=== PATIENT | male | born 1970 | race Caucasian/White ===

== ENCOUNTER 2017-11-24 11:09 | Inpatient (IN) | payer OTHER ==
[~2017-11-24 11:09] MED LIST: Glycopyrrolate 0.2 MG/ML 5 ML SYRINGE ONE; Lidocaine 1% PF 5 ML VIAL ONE; PROPOFOL 200 MG/20 ML VIAL ONE
[2017-11-24] MEDS ORDERED: Piperacillin/Tazobactam 4.5 GM VIAL ONE (12:05)
[2017-11-24 12:09] LABS: ALT (SGPT) 15 U/L (8-55); AST (SGOT) 19 U/L (5-34); Albumin 3.3 g/dL (3.5-5.0); Alkaline Phosphatase 115 U/L (40-150); Anion Gap 15 mmol/L (10-20); BUN (Urea Nitrogen) 21 mg/dL (8.9-20.6); Bilirubin, Total 0.6 mg/dL (0.2-1.2); Calc. Creatinine Clearance 0 mL/min (70-130); Calcium 9.5 mg/dL (7.8-10.44); Carbon Dioxide 25 mmol/L (22-29); Chloride 95 mmol/L (98-107); Estimated GFR-MDRD 57; Globulin 3.5 g/dL (2.4-3.5); Glucose 420 mg/dL (70-105); Magnesium 1.7 mg/dL (1.6-2.6); Protein, Total 6.8 g/dL (6.0-8.3); Sodium 131 mmol/L (136-145)
[2017-11-24 12:17] LABS: Band 29 % (5-11); Hemoglobin 13.2 g/dL (14.0-18.0); Large Platelets MODERATE; Lymphocytes 7 % (21-51); MDiff Complete? YES; Mean Corpuscular HGB CONC 32.1 g/dL (32.0-36.0); Mean Corpuscular Hemoglobin 26.2 pg (27.0-31.0); Mean Corpuscular Volume 81.5 fL (78.0-98.0); Mean Platelet Volume 13.8 fL (7.4-10.4); Monocytes 6 % (0-10); Neutrophil 58 % (42-75); PLT Morphology Comment Appears Adequate; Platelet Count 218 thou/uL (130-400); RBC Distribution Width 12.3 % (11.5-14.5); RBC Morphology Normal; Red Blood Cell (RBC) Count 5.06 mill/uL (4.70-6.10); White Blood Cell (WBC) Count 23.3 thou/uL (4.8-10.8)
--- NOTE | 2017-11-24 12:19 | RAD ---
PORTABLE CHEST 1 VIEW: Date: 11/24/17 Time: 1202 hours HISTORY: Cough. FINDINGS/IMPRESSION: The heart size is normal. There is elevation of the left hemidiaphragm with adjacent focal density li segundo due to subsegmental atelectasis. Right lung is clear. No pneumothoraces or gretel pulmonary edema seen. POS: [facility]
--- NOTE | 2017-11-24 12:21 | RAD ---
RADIOGRAPH RIGHT FOOT 3 VIEWS: Date: 11/24/17 Time: 1206 hours HISTORY: 47-year-old male with right foot infection: swelling, erythema, and pain, with ulcers of the foot. COMPARISON: 05/11/17. FINDINGS: No evidence of periosteitis or permeative lesion. There is soft tissue swelling lateral to the fifth MTP joint, greater than on the prior study. There is a tiny focal lucency within this which could be gas or ulceration. No fracture or dislocation. No high grade DJD. IMPRESSION: 1. Cellulitis of the foot around the lateral aspect of the fifth metatarsophalangeal joint. 2. No plain radiographic evidence of osteomyelitis. POS: [facility]
[2017-11-24 12:24] LABS: Bilirubin Small (Negative); Blood, Urine Trace (Negative); Clarity Clear (Clear); Glucose, Urine (Dipstick) >=1000 mg/dL (Negative); Leukocyte Negative (Negative); Nitrite Negative (Negative); Protein, Urine (Dipstick) 100 mg/dL (Neg-Trace)
[2017-11-24 12:27] LABS: RBC/HPF 0-3 HPF (0-3); Squamous Epithelial 0-3 HPF (0-3); Transitional Epithelial 0-3 HPF (0-3)
[2017-11-24 12:28] LABS: Bacteria/HPF 1+ HPF (None Seen)
[2017-11-24] MEDS ORDERED: Vancomycin HCl 500 MG VIAL ONE (12:58)
[2017-11-24] MEDS ORDERED: Sodium Chloride 0.9% 100 ML ONE (12:58)
[2017-11-24 16:35] LABS: Lactic Acid 1.4 mmol/L (0.5-2.2)
[2017-11-24 16:47] VITALS: BMI 33.3
[2017-11-24] MEDS ORDERED: Dextrose 50% Abboject 50 ML SYRINGE SLOW IVP PRN (17:44)
[2017-11-24] MEDS ORDERED: Acetaminophen 325 MG TAB PO PRN (17:44)
[2017-11-24] MEDS ORDERED: Guaifenesin DM 100-10/5 ML UDCUP PO PRN (17:44)
[2017-11-24] MEDS ORDERED: Senokot S 8.6-50 MG TAB PO PRN (17:44)
[2017-11-24] MEDS ORDERED: Dextrose 5% in Water 1,000 ML IV PRN (17:44)
[2017-11-24] MEDS ORDERED: Sodium Chloride 0.9% 1,000 ML IV SCH (17:45)
[2017-11-24] MEDS ORDERED: VANCOMYCIN/ RENALLY ADJUST ANTIBIOTICS IVPB PRN (17:51)
[2017-11-24] MEDS ORDERED: traMADol HCl 50 MG TAB PO PRN (17:51)
[2017-11-24] MEDS ORDERED: Acetaminophen 500 MG TAB PO PRN (17:51)
[2017-11-24] MEDS: Sodium Chloride 0.9% 1,000 ML IV SCH (18:24)
--- NOTE | 2017-11-24 18:59 | HP ---
DATE OF ADMISSION: 11/24/2017 HISTORY OF PRESENT ILLNESS: Ferdinand Jovel is a 47-year-old male diabetic, nonsmoker, presents to the emergency room at 10:00 this morning with right foot infection. He has extreme cellulitis. He has a n open wound communicating to the metatarsophalangeal joint. He has cellulitis tracking up to his an kle. The infection involves the tendon. He has a callus over the plantar aspect. The patient has h ad blood cultures, seen by Dr. Barbour, admitted to the medical service. Although he was seen at 10: 00 this morning, I was called at 5:00 p.m. to see him. He fortunately has been n.p.o. X-rays do not reveal any evidence of osteomyelitis. White count is 23,000, hemoglobin 13. Basic metabolic profil e, sodium 131, BUN 21, creatinine 1.33, GFR 57, glucose 420. ALLERGIES: LEVOFLOXACIN. TOBACCO: None. ALCOHOL: None. MEDICATIONS: Testosterone injections weekly, glipizide 5 mg a day, lisinopril 2.5 mg a day, gabapent in 300 mg t.i.d., fenofibrate 160 mg p.o. at bedtime. PAST SURGICAL HISTORY: Traumatic amputation of his finger. PAST MEDICAL HISTORY: Diabetes mellitus, hypertension. REVIEW OF SYSTEMS: Ten point noncontributory. FAMILY HISTORY: Negative. PHYSICAL EXAMINATION: VITAL SIGNS: 5 feet 9 inches, 226 pounds, 33 BMI, 99.2, 111 heart rate, 105/66. HEAD, EARS, EYES, NOSE AND THROAT: Unremarkable. LUNGS: Clear to auscultation. CARDIAC: Regular rate and rhythm without murmur or gallop. ABDOMEN: Soft, nontender. EXTREMITIES: Palpable femoral and popliteal pulses. Extremities are unremarkable. ASSESSMENT: Diabetic infection of right foot with severe infection and deep ulceration of the metata rsophalangeal joint of the fifth toe. PLAN: I cannot palpate pedal pulses, but he has good popliteal pulses. Plan amputation of right fif th toe and metatarsal tonight urgently. Risks and benefits explained indicated.
[2017-11-24] MEDS ORDERED: Ondansetron HCl/PF 4 MG/2 ML Vial IVP PRN ×2 (19:22→20:31)
[2017-11-24] MEDS ORDERED: Fentanyl 100 MCG/2 ML VIAL ONE (19:35)
[2017-11-24] MEDS ORDERED: Piperacillin/Tazobactam 4.5 GM in Sodium Chloride 0.9% 100 ML IVPB SCH (20:00)
[2017-11-24] MEDS ORDERED: SUGAMMADEX SODIUM 200 MG/2 ML VIAL ONE (20:18)
[2017-11-24] MEDS ORDERED: Promethazine HCl 25 MG/ML VIAL SLOW IVP PRN (20:31)
[2017-11-24] MEDS ORDERED: Promethazine HCl 25 MG/ML VIAL IM PRN (20:31)
[2017-11-24] MEDS ORDERED: HYDROmorphone 2 MG/ML VIAL SLOW IVP PRN (20:31)
[2017-11-24] MEDS ORDERED: Non-Formulary Item 1 EACH (Fenofibrate [Fenofibrate] 160 MG) PO SCH (21:00)
[2017-11-24] MEDS: Fenofibrate Nanocrystallized 145 MG TAB PO SCH (21:51)
[2017-11-24] MEDS: Famotidine 20 MG TAB PO SCH (21:51)
[2017-11-24] MEDS: Gabapentin 300 MG CAP PO SCH (21:51)
[2017-11-24] MEDS: Piperacillin/Tazobactam 4.5 GM in Sodium Chloride 0.9% 100 ML IVPB SCH (21:58)
[2017-11-24] MEDS: HumaLOG 300 UNITS/3 ML VIAL SC PRN (22:33)
[2017-11-25] MEDS: Vancomycin HCl 1.5 GM in Sodium Chloride 0.9% 250 ML 300 ML IVPB SCH ×2 (00:49→13:35)
--- NOTE | 2017-11-25 01:40 | HP ---
REASON FOR ADMISSION: Sepsis, right foot diabetic ulcer with cellulitis. HISTORY OF PRESENT ILLNESS: The patient gives history of noticing swollen foot on the right side on Monday. On Monday, he noticed a scrape over the dorsum of the foot and the swelling had infact come down, this was all last week. From then on, patient started to spike fever. His swelling and redness started to get worse and he went to see Dr. Gustavo Singer this morning. He was sent to [facility] [place], [place] Emergency Room. From there, he is being admitted for sepsis with right foot abscess and cellulitis. The patient was found to have had a white count of 23 with 29% bands in the ER. The patient says he can' t afford Tradjenta and took 20 units of Novolin insulin because his fingerstick glucose was 450 this morning. He has complaints of cough which is mostly dry and sob. 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 CURRENT MEDICATIONS: Glipizide 5 mg daily, fenofibrate 160 mg p.o. daily, gabapentin 300 mg p.o. 3 times daily, lisinopril 2.5 mg p.o. daily, testosterone shots once a week. ALLERGIES: Allergic to LEVAQUIN which makes him dizzy. PERSONAL HISTORY: Dips tobacco, smokes smokeless cigarettes, quit smoking tobacco 20 years ago, does not abuse alcohol or drugs. Lives with his . FAMILY HISTORY: Father at the age of 79. Mother at the age of 72. Both were heavy smokers and of COPD related complications. CODE STATUS: FULL. REVIEW OF SYSTEMS: The following complete review of systems was negative, unless otherwise mentioned in the HPI or below: Constitutional: Weight loss or gain, ability to conduct usual activities. Skin: Rash, itching. Eyes: Double vision, pain. ENT/Mouth: Nose bleeding, neck stiffness, pain, tenderness. Cardiovascular: Palpitations, dyspnea on exertion, orthopnea. Respiratory: Shortness of breath, wheezing, cough, hemoptysis, fever or night sweats. Gastrointestinal: Poor appetite, abdominal pain, heartburn, nausea, vomiting, constipation, or diarrhea. Genitourinary: Urgency, frequency, dysuria, nocturia. Musculoskeletal: Pain, swelling. Neurologic/Psychiatric: Anxiety, depression. Allergy/Immunologic: Skin rash, bleeding tendency. PHYSICAL EXAMINATION: GENERAL: The patient is a 47-year-old male who is currently not in any acute distress. VITAL SIGNS: Blood pressure 116/80, pulse 120 per minute, respiratory rate 20 per minute, temperature 98.2 degrees Fahrenheit, saturating 92% on room air. NECK: Supple, no elevated JVD. HEENT: Eyes: Extraocular muscles intact. Pupils reacting to light. Oral cavity: Mucous membranes are moist. No exudates or congestion. CARDIOVASCULAR SYSTEM: S1, S2 heard. Regular rhythm. RESPIRATORY SYSTEM: Air entry 1+ bilateral. Scattered rhonchi plus bilateral. ABDOMEN: Soft, bowel sounds heard. No tenderness, rigidity or guarding. EXTREMITIES: Right foot, there is purulent ulcer over the head of fifth metatarsal on the dorsal aspect. His entire foot plus a little above the ankle area is erythematous and edematous. He is able to move all toes: Peripheral pulses are 2+ bilateral. No other ischemic gangrene. CENTRAL NERVOUS SYSTEM: No gross focal deficits noted. The patient is alert, awake, oriented well. PSYCHIATRIC SYSTEM: The patient's mood is euthymic. No hallucinations or delusions. LABORATORY AND X-RAY FINDINGS: EKG done shows sinus tachycardia at 122 beats per minute. Chest x-ray done shows elevation of left hemidiaphragm, no obvious congestion seen. Right foot three view x-ray done shows cellulitis of fluid around the lateral aspect of the fifth metatarsophalangeal joint. No evidence of osteomyelitis. UA shows more than 1000 mg per deciliter of glucose, there are trace ketones and 1+ bacteria with 4-6 wbc's. BUN 21, creatinine 1.3, serum bicarbonate 25, serum glucose 420. Lactic acid 2.2, albumin is 3.3. Liver enzymes within normal limits. White count of 23 with 58% neutrophils and 29% bands, H&H 13 and 41, and platelet count 218. CLINICAL IMPRESSION AND PLAN: The patient will be admitted to telemetry for sepsis with right foot diabetic ulcer. The patient also likely has mild COPD flare-up versus allergic bronchitis. We will place him on vancomycin and Zosyn. Dr. Carey has evaluated him just now and is planning to take him to OR for possible fifth toe amputation and debridement. He is currently n.p.o. for surgery. We will continue him on glipizide. We will add Lantus 15 units twice daily. We will continue his fenofibrate, gabapentin, small dose of lisinopril as before. He will be on DuoNebs q.4 hourly and add a small dose of steroids for his allergic bronchitis with hacking cough at present. We will continue to closely monitor him on telemetry and likely we will transfer him to medical floor in the morning when he is more stable. RANDALL
--- NOTE | 2017-11-25 05:14 | OP ---
DATE OF PROCEDURE: 11/24/2017 PREOPERATIVE DIAGNOSES: Diabetes mellitus, uncontrolled, sepsis, severe diabetic infection of right foot with abscess tracking up the dorsum of the foot with neuropathic ulcer infected and separate lat eral foot ulcer tracking to the MTP fifth toe. PROCEDURES: Amputation of right fifth toe and metatarsal, wound left open to heal by secondary inten tion. Note, excellent blood supply, cautery required for pulsatile bleeding. Incision and drainage of dorsum of foot abscess, culture and sensitivity to microbiology. SURGEON: Dr. Alec Carey. ANESTHESIA: General. Patient was seen in the emergency room at 10:00 this morning, I received consult at 5:00 p.m. The attila guadarrama had a septic right foot with negative x-rays to osteo, but however, he had a white count of ove r 21,000, hyperglycemia and sepsis. PROCEDURE IN DETAIL: The patient was taken to the operating room where under general anesthesia, rig ht lower extremity was prepped with ChloraPrep, draped in routine fashion. Right fifth toe was grasp ed with a towel clamp and excised, excising the plantar neuropathic ulcer as well as the larger ulcer medially. Incision was carried through skin and subcutaneous tissue and carried down for racquet in cision incorporated. Resection of the neuropathic callus and ulcer and the medial ulcer down to the fifth metatarsal transecting with a bone cutter, resecting proximally with rongeurs. There was a cut aneous abscess tracking up the dorsum of the foot towards the ankle that was opened. This was irriga alena. Hemostasis gained with the cautery. There was excellent bleeding. SurgiSeal placed over the w ound and packed open with a dressing for wound VAC application tomorrow. Patient tolerated the proce dure well and transferred to recovery room in stable condition.
[2017-11-25 05:30] LABS: Hemoglobin A1c 11.2 % (4.0-6.0)
[2017-11-25] MEDS: Piperacillin/Tazobactam 4.5 GM in Sodium Chloride 0.9% 100 ML IVPB SCH (05:39)
[2017-11-25] MEDS: HumaLOG 300 UNITS/3 ML VIAL SC PRN ×4 (05:39→20:48)
[2017-11-25 05:40] LABS: Anion Gap 18 mmol/L (10-20); BUN (Urea Nitrogen) 23 mg/dL (8.9-20.6); Calc. Creatinine Clearance 142 mL/min (70-130); Calcium 8.3 mg/dL (7.8-10.44); Carbon Dioxide 18 mmol/L (22-29); Chloride 101 mmol/L (98-107); Estimated GFR-MDRD 89; Glucose 322 mg/dL (70-105); Potassium 4.5 mmol/L (3.5-5.1); Sodium 132 mmol/L (136-145)
[2017-11-25] MEDS ORDERED: glipiZIDE 5 MG TAB PO SCH (07:30)
[2017-11-25 07:52] LABS: Band 3 % (5-11); Hemoglobin 11.3 g/dL (14.0-18.0); Hypochromia SLIGHT = 6-15 cells (100X) (0-5/hpf); MDiff Complete? YES; Mean Corpuscular HGB CONC 31.5 g/dL (32.0-36.0); Mean Corpuscular Volume 85.8 fL (78.0-98.0); Mean Platelet Volume 10.7 fL (7.4-10.4); Microcytosis SLIGHT = 6-15 cells (100X) (0-5/hpf); Monocytes 14 % (0-10); Neutrophil 80 % (42-75); PLT Morphology Comment Appears Adequate; Platelet Count 225 thou/uL (130-400); RBC Distribution Width 12.6 % (11.5-14.5); Reactive Lymphocytes 3 % (0-10); Red Blood Cell (RBC) Count 4.18 mill/uL (4.70-6.10); White Blood Cell (WBC) Count 19.7 thou/uL (4.8-10.8)
[2017-11-25] MEDS ORDERED: predniSONE 20 MG TAB PO SCH (08:00)
[2017-11-25] MEDS: Famotidine 20 MG TAB PO SCH ×2 (09:01→20:44)
[2017-11-25] MEDS: Enoxaparin Sodium 40 MG/0.4 ML SYRINGE SC SCH (09:01)
[2017-11-25] MEDS: Benzonatate 100 MG CAP PO SCH ×3 (09:01→20:44)
[2017-11-25] MEDS: guaiFENesin ER 600 MG TAB PO SCH ×2 (09:02→20:45)
[2017-11-25] MEDS: glipiZIDE 5 MG TAB PO SCH ×2 (09:02→20:44)
[2017-11-25] MEDS: Gabapentin 300 MG CAP PO SCH ×3 (09:02→20:44)
[2017-11-25] MEDS: Lisinopril 2.5 MG TAB PO SCH (09:02)
[2017-11-25] MEDS: Polyethylene Glycol 3350 17 GM Packet PO SCH (09:03)
[2017-11-25] MEDS: Insulin Glargine 15 UNITS in Pre-Filled Syringe 1 EACH SC SCH ×2 (09:25→20:52)
[2017-11-25] MEDS: traMADol HCl 50 MG TAB PO PRN (10:10)
[2017-11-25] MEDS: Sodium Chloride 0.9% 1,000 ML IV SCH ×2 (10:11→22:53)
--- NOTE | 2017-11-25 12:04 | PDOC.PN ---
- Subjective Encounter Start Date: 11/25/17 Encounter Start Time: 11:00 Subjective: feels better -: ambulating in room, has some pain in his operated foot - Objective Resuscitation Status: Resuscitation Status FULL:Full Resuscitation MAR Reviewed: Yes Vital Signs & Weight: Vital Signs (12 hours) Temp Pulse Resp BP BP Pulse Ox 11/25/17 07:49 98 F 107 H 18 137/79 97 11/25/17 03:42 92 L 11/25/17 03:07 98.8 F 103 H 17 110/63 92 L Weight Weight 226 lb 1.6 oz Result Diagrams: 11/25/17 04:54 11/25/17 04:53 Additional Labs: Accuchecks 11/25/17 11/25/17 11/24/17 10:47 05:35 21:22 POC Glucose 346 H 319 H 253 H 11/24/17 11/24/17 17:01 13:59 POC Glucose 279 H 325 H Phys Exam - Physical Examination HEENT: PERRLA, moist MMs Neck: no JVD, supple Respiratory: no wheezing, no rales Cardiovascular: RRR, no significant murmur Gastrointestinal: soft, non-tender, positive bowel sounds Musculoskeletal: pulses present right foot in dressing Neurological: non-focal, moves all 4 limbs Psychiatric: normal affect, A&O x 3 Dx/Plan (1) Sepsis Code(s): A41.9 - SEPSIS, UNSPECIFIED ORGANISM Status: Acute Qualifiers: Sepsis type: Streptococcus, other Qualified Code(s): A40.8 - Other streptococcal sepsis (2) Bacteremia Code(s): R78.81 - BACTEREMIA Status: Acute Comment: streptococcus agalactiae 2/2 (3) Diabetic foot ulcer Code(s): E11.621 - TYPE 2 DIABETES MELLITUS WITH FOOT ULCER; L97.509 - NON- PRESSURE CHRONIC ULCER OTH PRT UNSP FOOT W UNSP SEVERITY Status: Acute Qualifiers: Diabetic foot ulcer location: midfoot Diabetes mellitus type: type 2 Laterality: right Non-pressure ulcer stage: with bone involvement without evidence of necrosis Qualified Code(s): E11.621 - Type 2 diabetes mellitus with foot ulcer; L97.416 - 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 without evidence of necrosis Comment: s/p amp of 5th toe and metatarsal with debribement of dorsal ulcer (4) DM type 2 (diabetes mellitus, type 2) Status: Chronic Qualifiers: Diabetes mellitus care home insulin use: without exterminator helper use Diabetes mellitus complication status: with hyperglycemia Qualified Code(s): E11.65 - Type 2 diabetes mellitus with hyperglycemia Comment: HbA1C of 11.2 (5) Dyslipidemia Code(s): E78.5 - HYPERLIPIDEMIA, UNSPECIFIED Status: Chronic (6) Acute bronchitis Code(s): J20.9 - ACUTE BRONCHITIS, UNSPECIFIED Status: Acute Qualifiers: Bronchitis organism: unspecified organism Qualified Code(s): J20.9 - Acute bronchitis, unspecified - Plan continue vanc and zosyn -: await full cultures -: echo pending, tx to med floor -: dc steroids, bronchitis is stable now, nebs, mucinex/tessalon -: increase glipizide and add lantus for now * . Review of Systems - Medications/Allergies Allergies/Adverse Reactions: Allergies Allergy/AdvReac Type Severity Reaction Status Date / Time levofloxacin [From Levaquin] Allergy Verified 11/24/17 16:30 Medications: Current Medications Acetaminophen (Tylenol) 650 mg PO Q4H PRN PRN Reason: Headache/Fever/Mild Pain (1-3) Acetaminophen (Tylenol) 1,000 mg PO Q6H PRN PRN Reason: Moderate to Severe Pain (6-10) Albuterol/Ipratropium (Duoneb) 3 ml NEB [id number] [facility] Last Admin: 11/25/17 09:47 Dose: Not Given Benzonatate (Tessalon) 100 mg PO TID [facility] Last Admin: 11/25/17 09:01 Dose: 100 mg Dextrose/Water (Dextrose 50%) 25 gm SLOW IVP PRN PRN PRN Reason: Hypoglycemia Enoxaparin Sodium (Lovenox) 40 mg SC 0900 [facility] Last Admin: 11/25/17 09:01 Dose: 40 mg Famotidine (Pepcid) 20 mg PO BID [facility] Last Admin: 11/25/17 09:01 Dose: 20 mg Fenofibrate (Tricor) 145 mg PO HS [facility] Last Admin: 11/24/17 21:51 Dose: Not Given Gabapentin (Neurontin) 300 mg PO TID [facility] Last Admin: 11/25/17 09:02 Dose: 300 mg Glipizide (Glucotrol) 5 mg PO BID [facility] Last Admin: 11/25/17 09:02 Dose: 5 mg Glucagon (Glucagon) 1 mg IM PRN PRN PRN Reason: Hypoglycemia Guaifenesin (Mucinex) 600 mg PO Q12HR [facility] Last Admin: 11/25/17 09:02 Dose: 600 mg Guaifenesin/Dextromethorphan (Robitussin Dm) 15 ml PO Q4H PRN PRN Reason: Cough Dextrose/Water (D5w) 1,000 mls @ 0 mls/hr IV .Q0M PRN PRN Reason: Hypoglycemia Sodium Chloride (Normal Saline 0.9%) 1,000 mls @ 100 mls/hr IV .Q10H [facility] Stop: 11/26/17 06:29 Last Admin: 11/25/17 10:11 Dose: 1,000 mls Vancomycin HCl 1.5 gm/ Sodium (Chloride) 300 mls @ 150 mls/hr IVPB 0100,1300 [facility] Last Admin: 11/25/17 00:49 Dose: 300 mls Piperacillin Sod/Tazobactam (Sod 4.5 gm/ Sodium Chloride) 100 mls @ 200 mls/hr IVPB Q8HR [facility] Last Admin: 11/25/17 05:39 Dose: 100 mls Insulin Glargine 15 units/ (Miscellaneous Medication) 0.15 mls @ 0 mls/hr SC BID [facility] Last Admin: 11/25/17 09:25 Dose: 0.15 mls Insulin Human Lispro (Humalog) 0 units SC .BEDTIME SLIDING SC PRN PRN Reason: Bedtime Correctional Scale Last Admin: 11/24/17 22:33 Dose: 3 unit Insulin Human Lispro (Humalog) 0 units SC .MODERATE SLIDING SC PRN PRN Reason: Moderate Correctional Scale Last Admin: 11/25/17 05:39 Dose: 8 unit Lisinopril (Zestril) 2.5 mg PO DAILY [facility] Last Admin: 11/25/17 09:02 Dose: 2.5 mg Miscellaneous Medication (Pharmacy To Dose) 1 each IVPB PRN PRN PRN Reason: Pharmacy to dose Polyethylene Glycol (Miralax) 17 gm PO DAILY [facility] Last Admin: 11/25/17 09:03 Dose: Not Given Prednisone (Prednisone) 20 mg PO [facility] Last Admin: 11/25/17 09:01 Dose: 20 mg Senna/Docusate Sodium (Senokot S) 2 tab PO BID PRN PRN Reason: Constipation Sodium Chloride (Flush - Normal Saline) 10 ml IVF Q12HR [facility] Last Admin: 11/25/17 09:03 Dose: Not Given Sodium Chloride (Flush - Normal Saline) 10 ml IVF PRN PRN PRN Reason: Saline Flush Tramadol HCl (Ultram) 50 mg PO Q6H PRN PRN Reason: Mild-Moderate Pain (1-5) Tramadol HCl (Ultram) 100 mg PO Q6H PRN PRN Reason: Moderate to Severe Pain (6-10) Last Admin: 11/25/17 10:10 Dose: 100 mg
--- NOTE | 2017-11-25 13:54 | ULT ---
ARTERIAL DUPLEX SONOGRAM RIGHT LOWER EXTREMITY: HISTORY: Vascular disease. FINDINGS: Good color and spectral Doppler flow with triphasic waveforms are present within the right common fem oral, femoral and deep femoral, popliteal, popliteal, anterior tibial, and posterior tibial arteries. Dorsalis pedis artery not visible due to overlying bandages. IMPRESSION: Good arterial flow throughout the right lower extremity. POS: [facility]
[2017-11-25 15:09] LABS: HIV (1/2) Antibody/Antigen Non-Reactive (NonReactive); HIV 1/2 INDEX 0.17 S/CO (<1.00); Hep C IgG Ab Non-Reactive (NonReactive); Hep C Index 0.15 S/CO (0-0.79)
[2017-11-25] MEDS: metroNIDAZOLE 500 MG TAB PO SCH ×2 (15:22→20:44)
[2017-11-25] MEDS: cefTRIAXone\\ROCEPHIN 2 GM in Sodium Chloride 0.9% 100 ML IVPB SCH (15:23)
--- NOTE | 2017-11-25 19:38 | CON ---
DATE OF CONSULTATION: 11/25/2017 REASON FOR CONSULTATION: Right foot inflammatory process. HISTORY OF PRESENT ILLNESS: A 47-year-old with history of longstanding type 2 diabetes mellitus, robby ropathy with new onset of inflammatory process right lateral forefoot, which reportedly started a few days before admission. He was admitted and the films did not show any osteolytic lesions, but repor tedly had an extension of the wound lateral forefoot towards the fifth MPJ. The patient underwent a ray amputation of that fifth ray and is currently on the second day postop. No headaches, visual sym ptoms, sore throat, odynophagia or dysphagia, no cough or sputum production or chest pain, no abdomin al pain, diarrhea, or genitourinary symptoms. No joint symptoms outside the area of involvement. PAST MEDICAL HISTORY: Type 2 diabetes, dyslipidemia, hypertension, neuropathy. ALLERGIES: LEVAQUIN, not true allergic reaction more like an adverse reaction of dizziness. CURRENT MEDICATIONS: Tylenol, DuoNeb, Tessalon, Pepcid, Lovenox, TriCor, Glucotrol, insulin, lisinop ril, Zosyn, and vancomycin. 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 PHYSICAL EXAMINATION: VITAL SIGNS: T-max 99, currently 98.1, other vital signs with slight tachycardia, BP 140/80. SKIN: Shows the area of erythema surrounding the fifth MPJ with an ulcerated region with yellow exud ate on the surface. No lymphadenopathy. HEENT: Noncontributory. NECK: Supple. LUNGS: Symmetric. Clear breath sounds. HEART: S1, S2, regular rate. No S3, S4. ABDOMEN: Soft, not distended or tender. No ascites. No bladder distention. EXTREMITIES: No joint inflammatory activity outside the area of involvement. Pulses are faintly pal pable on dorsalis and popliteals. LABORATORY DATA: White cell count 23,000, now at 19.7, hemoglobin 11, platelets 225,000. Chemistry with a sodium 132, creatinine 0.91. Liver profile normal. Albumin 3.3, globulin 3.5. Urinalysis wi th 4-6 wbc's. Microbiology 2/2 sets of blood cultures with group B though abscess with group B strep as well. Chest x-ray with normal heart size, elevation of the left hemidiaphragm with adjacent foca l density. The operative note was reviewed. The patient had a ray amputation was left to heal by se cond intention. ASSESSMENT: 1. Neuropathy with type 2 diabetes mellitus. 2. Inflammatory process right foot with ulcer extending to the MPJ at the fifth ray. 3. Fifth ray amputation. 4. Group B strep bacteremia. DISCUSSION: The patient has the usual process of neuropathic ulceration with extension to the joint, status post ray amputation. Check vascular supply with a duplex ultrasound right lower extremity an d switch him to Rocephin and Flagyl. Discontinue the current antimicrobials, most likely be able to transition to oral Keflex and Flagyl or just Keflex by itself depending results of final cultures. I f there is evidence of vascular insufficiency then full vascular evaluation with CT angio would recom mend in consultation with [facility] Nurseryman.
[2017-11-25] MEDS: Fenofibrate Nanocrystallized 145 MG TAB PO SCH (20:44)
[2017-11-26] MEDS: HumaLOG 300 UNITS/3 ML VIAL SC PRN ×4 (06:48→20:27)
[2017-11-26] MEDS ORDERED: metFORMIN 500 MG TAB PO SCH (08:00)
[2017-11-26 08:42] LABS: Anion Gap 16 mmol/L (10-20); BUN (Urea Nitrogen) 20 mg/dL (8.9-20.6); Calc. Creatinine Clearance 151 mL/min (70-130); Calcium 8.5 mg/dL (7.8-10.44); Carbon Dioxide 19 mmol/L (22-29); Chloride 103 mmol/L (98-107); Estimated GFR-MDRD Greater than 90; Glucose 382 mg/dL (70-105); Hemoglobin 11.1 g/dL (14.0-18.0); Mean Corpuscular HGB CONC 31.9 g/dL (32.0-36.0); Mean Corpuscular Hemoglobin 27.3 pg (27.0-31.0); Mean Corpuscular Volume 85.5 fL (78.0-98.0); Mean Platelet Volume 9.9 fL (7.4-10.4); Platelet Count 277 thou/uL (130-400); Potassium 4.1 mmol/L (3.5-5.1); RBC Distribution Width 12.9 % (11.5-14.5); Red Blood Cell (RBC) Count 4.08 mill/uL (4.70-6.10); Sodium 134 mmol/L (136-145)
[2017-11-26] MEDS: Lisinopril 2.5 MG TAB PO SCH (08:49)
[2017-11-26] MEDS: Benzonatate 100 MG CAP PO SCH ×3 (08:49→23:26)
[2017-11-26] MEDS: Gabapentin 300 MG CAP PO SCH ×3 (08:49→20:18)
[2017-11-26] MEDS: guaiFENesin ER 600 MG TAB PO SCH ×2 (08:49→20:18)
[2017-11-26] MEDS: metroNIDAZOLE 500 MG TAB PO SCH ×3 (08:49→20:18)
[2017-11-26] MEDS: glipiZIDE 5 MG TAB PO SCH (08:49)
[2017-11-26] MEDS: Famotidine 20 MG TAB PO SCH ×2 (08:50→20:15)
[2017-11-26] MEDS: Insulin Glargine 15 UNITS in Pre-Filled Syringe 1 EACH SC SCH ×2 (08:51→20:26)
[2017-11-26] MEDS: Polyethylene Glycol 3350 17 GM Packet PO SCH (08:52)
[2017-11-26] MEDS: Enoxaparin Sodium 40 MG/0.4 ML SYRINGE SC SCH (08:52)
[2017-11-26 09:28] LABS: Band 12 % (5-11); Large Platelets SLIGHT; Lymphocytes 4 % (21-51); MDiff Complete? YES; Monocytes 10 % (0-10); Neutrophil 74 % (42-75); PLT Morphology Comment Appears Adequate; Polychromasia SLIGHT = 2-3 cells (100X) (0-2/hpf); White Blood Cell (WBC) Count 29.4 thou/uL (4.8-10.8)
--- NOTE | 2017-11-26 11:08 | PDOC.PN ---
- Subjective Encounter Start Date: 11/26/17 Encounter Start Time: 10:30 Subjective: feels better -: cough is better but still present, mostly dry - Objective Resuscitation Status: Resuscitation Status FULL:Full Resuscitation MAR Reviewed: Yes Vital Signs & Weight: Vital Signs (12 hours) Temp Pulse Resp BP Pulse Ox 11/26/17 10:48 121 H 16 98 11/26/17 08:49 114 H 11/26/17 07:53 98.1 F 114 H 22 H 150/84 H 91 L 11/26/17 06:24 105 H 16 94 L 11/26/17 02:48 102 H 16 96 Weight Admit Weight 266 lb 1.6 oz Weight 226 lb 1.6 oz I&O: 11/25/17 11/26/17 11/27/17 06:59 06:59 06:59 Intake Total 1030 Balance 1030 Result Diagrams: 11/26/17 08:02 11/26/17 08:02 Additional Labs: Accuchecks 11/26/17 11/25/17 11/25/17 04:46 20:00 16:39 POC Glucose 369 H 411 H 362 H 11/25/17 10:47 POC Glucose 346 H Phys Exam - Physical Examination HEENT: PERRLA, sclera anicteric Neck: no JVD, supple Respiratory: no wheezing, no rales Cardiovascular: RRR, no significant murmur Gastrointestinal: soft, non-tender, positive bowel sounds Musculoskeletal: pulses present right leg edema, foot in dressing Neurological: non-focal, moves all 4 limbs Psychiatric: normal affect, A&O x 3 Dx/Plan (1) Sepsis Code(s): A41.9 - SEPSIS, UNSPECIFIED ORGANISM Status: Acute Qualifiers: Sepsis type: Streptococcus, other Qualified Code(s): A40.8 - Other streptococcal sepsis (2) Bacteremia Code(s): R78.81 - BACTEREMIA Status: Acute Comment: streptococcus agalactiae 2/2 (3) Diabetic foot ulcer Code(s): E11.621 - TYPE 2 DIABETES MELLITUS WITH FOOT ULCER; L97.509 - NON- PRESSURE CHRONIC ULCER OTH PRT UNSP FOOT W UNSP SEVERITY Status: Acute Qualifiers: Diabetic foot ulcer location: midfoot Diabetes mellitus type: type 2 Laterality: right Non-pressure ulcer stage: with bone involvement without evidence of necrosis Qualified Code(s): E11.621 - Type 2 diabetes mellitus with foot ulcer; L97.416 - 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 without evidence of necrosis Comment: s/p amp of 5th toe and metatarsal with debribement of dorsal ulcer (4) DM type 2 (diabetes mellitus, type 2) Status: Chronic 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: 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 Diabetes mellitus complication status: with hyperglycemia Qualified Code(s): E11.65 - Type 2 diabetes mellitus with hyperglycemia Comment: HbA1C of 11.2 (5) Dyslipidemia Code(s): E78.5 - HYPERLIPIDEMIA, UNSPECIFIED Status: Chronic (6) Acute bronchitis Code(s): J20.9 - ACUTE BRONCHITIS, UNSPECIFIED Status: Acute Qualifiers: Bronchitis organism: unspecified organism Qualified Code(s): J20.9 - Acute bronchitis, unspecified - Plan is on ceftriaxone and flagyl -: wound vac will be placed in am per patient -: CM for outpt wound vac -: increase glipizide to 10mg bid, has intolerance with diarrhea to metformin -: continue lantus, is off steroids * . Review of Systems - Medications/Allergies Allergies/Adverse Reactions: Allergies Allergy/AdvReac Type Severity Reaction Status Date / Time levofloxacin [From Levaquin] Allergy Verified 11/24/17 16:30 Medications: Current Medications Acetaminophen (Tylenol) 650 mg PO Q4H PRN PRN Reason: Headache/Fever/Mild Pain (1-3) Acetaminophen (Tylenol) 1,000 mg PO Q6H PRN PRN Reason: Moderate to Severe Pain (6-10) Albuterol/Ipratropium (Duoneb) 3 ml NEB [id number] [facility] Last Admin: 11/26/17 10:48 Dose: 3 ml Benzonatate (Tessalon) 100 mg PO TID [facility] Last Admin: 11/26/17 08:49 Dose: 100 mg Dextrose/Water (Dextrose 50%) 25 gm SLOW IVP PRN PRN PRN Reason: Hypoglycemia Enoxaparin Sodium (Lovenox) 40 mg SC 0900 [facility] Last Admin: 11/26/17 08:52 Dose: Not Given Famotidine (Pepcid) 20 mg PO BID [facility] Last Admin: 11/26/17 08:50 Dose: 20 mg Fenofibrate (Tricor) 145 mg PO HS [facility] Last Admin: 11/25/17 20:44 Dose: 145 mg Gabapentin (Neurontin) 300 mg PO TID [facility] Last Admin: 11/26/17 08:49 Dose: 300 mg Glipizide (Glucotrol) 10 mg PO BID [facility] Glucagon (Glucagon) 1 mg IM PRN PRN PRN Reason: Hypoglycemia Guaifenesin (Mucinex) 600 mg PO Q12HR [facility] Last Admin: 11/26/17 08:49 Dose: 600 mg Guaifenesin/Dextromethorphan (Robitussin Dm) 15 ml PO Q4H PRN PRN Reason: Cough Dextrose/Water (D5w) 1,000 mls @ 0 mls/hr IV .Q0M PRN PRN Reason: Hypoglycemia Insulin Glargine 15 units/ (Miscellaneous Medication) 0.15 mls @ 0 mls/hr SC BID [facility] Last Admin: 11/26/17 08:51 Dose: 0.15 mls Ceftriaxone Sodium 2 gm/ (Sodium Chloride) 100 mls @ 200 mls/hr IVPB Q24HR [facility] Last Admin: 11/25/17 15:23 Dose: 100 mls Insulin Human Lispro (Humalog) 0 units SC .BEDTIME SLIDING SC PRN PRN Reason: Bedtime Correctional Scale Last Admin: 11/25/17 20:48 Dose: 5 unit Insulin Human Lispro (Humalog) 0 units SC .MODERATE SLIDING SC PRN PRN Reason: Moderate Correctional Scale Last Admin: 11/26/17 06:48 Dose: 10 unit Lisinopril (Zestril) 2.5 mg PO DAILY [facility] Last Admin: 11/26/17 08:49 Dose: 2.5 mg Metronidazole (Flagyl) 500 mg PO TID [facility] Last Admin: 11/26/17 08:49 Dose: 500 mg Polyethylene Glycol (Miralax) 17 gm PO DAILY [facility] Last Admin: 11/26/17 08:52 Dose: Not Given Senna/Docusate Sodium (Senokot S) 2 tab PO BID PRN PRN Reason: Constipation Sodium Chloride (Flush - Normal Saline) 10 ml IVF Q12HR [facility] Last Admin: 11/26/17 08:52 Dose: 10 ml Sodium Chloride (Flush - Normal Saline) 10 ml IVF PRN PRN PRN Reason: Saline Flush Tramadol HCl (Ultram) 50 mg PO Q6H PRN PRN Reason: Mild-Moderate Pain (1-5) Tramadol HCl (Ultram) 100 mg PO Q6H PRN PRN Reason: Moderate to Severe Pain (6-10) Last Admin: 11/25/17 10:10 Dose: 100 mg
[2017-11-26] MEDS: cefTRIAXone\\ROCEPHIN 2 GM in Sodium Chloride 0.9% 100 ML IVPB SCH (14:45)
[2017-11-26] MEDS: glipiZIDE 10 MG TAB PO SCH (20:18)
[2017-11-26] MEDS: Fenofibrate Nanocrystallized 145 MG TAB PO SCH (20:18)
[2017-11-26] MEDS: traMADol HCl 50 MG TAB PO PRN (20:24)
[2017-11-27] MEDS: HumaLOG 300 UNITS/3 ML VIAL SC PRN ×3 (05:09→20:26)
[2017-11-27 05:45] LABS: Anion Gap 11 mmol/L (10-20); BUN (Urea Nitrogen) 14 mg/dL (8.9-20.6); Calc. Creatinine Clearance 166 mL/min (70-130); Calcium 8.3 mg/dL (7.8-10.44); Carbon Dioxide 23 mmol/L (22-29); Chloride 103 mmol/L (98-107); Estimated GFR-MDRD Greater than 90; Glucose 277 mg/dL (70-105); Sodium 133 mmol/L (136-145)
[2017-11-27 06:27] LABS: Band 1 % (5-11); Hemoglobin 11.3 g/dL (14.0-18.0); Hypochromia SLIGHT = 6-15 cells (100X) (0-5/hpf); Lymphocytes 20 % (21-51); MDiff Complete? YES; Mean Corpuscular HGB CONC 31.5 g/dL (32.0-36.0); Mean Corpuscular Volume 85.8 fL (78.0-98.0); Monocytes 5 % (0-10); Neutrophil 74 % (42-75); PLT Morphology Comment Appears Adequate; Platelet Count 305 thou/uL (130-400); Red Blood Cell (RBC) Count 4.18 mill/uL (4.70-6.10); White Blood Cell (WBC) Count 21.5 thou/uL (4.8-10.8)
[2017-11-27] MEDS: Benzonatate 100 MG CAP PO SCH ×3 (09:21→20:24)
[2017-11-27] MEDS: guaiFENesin ER 600 MG TAB PO SCH ×2 (09:21→20:25)
[2017-11-27] MEDS: glipiZIDE 10 MG TAB PO SCH ×2 (09:22→20:24)
[2017-11-27] MEDS: Gabapentin 300 MG CAP PO SCH ×3 (09:22→20:24)
[2017-11-27] MEDS: Lisinopril 2.5 MG TAB PO SCH (09:22)
[2017-11-27] MEDS: Famotidine 20 MG TAB PO SCH ×2 (09:22→20:25)
[2017-11-27] MEDS: metroNIDAZOLE 500 MG TAB PO SCH ×3 (09:22→20:24)
[2017-11-27] MEDS: Insulin Glargine 15 UNITS in Pre-Filled Syringe 1 EACH SC SCH ×2 (09:23→20:27)
[2017-11-27] MEDS: Enoxaparin Sodium 40 MG/0.4 ML SYRINGE SC SCH (09:24)
[2017-11-27] MEDS: Polyethylene Glycol 3350 17 GM Packet PO SCH (09:24)
--- NOTE | 2017-11-27 12:18 | PDOC.PN ---
- Subjective Encounter Start Date: 11/27/17 Encounter Start Time: 11:15 Subjective: no sob, feels better -: no fever - Objective Resuscitation Status: Resuscitation Status FULL:Full Resuscitation MAR Reviewed: Yes Vital Signs & Weight: Vital Signs (12 hours) Temp Pulse Resp BP BP BP Pulse Ox 11/27/17 09:22 109 H 140/85 11/27/17 08:00 94 L 11/27/17 07:45 98.4 F 110 H 19 140/85 94 L 11/27/17 06:11 104 H 16 95 11/27/17 04:00 135/88 11/27/17 01:51 105 H 16 92 L Weight Admit Weight 266 lb 1.6 oz Weight 226 lb 1.6 oz I&O: 11/26/17 11/27/17 11/28/17 06:59 06:59 06:59 Intake Total 1030 1600 Balance 1030 1600 Result Diagrams: 11/27/17 05:02 11/27/17 05:02 Additional Labs: Accuchecks 11/27/17 11/26/17 11/26/17 04:40 20:20 16:13 POC Glucose 243 H 314 H 322 H 11/26/17 11:43 POC Glucose 413 H Phys Exam - Physical Examination HEENT: PERRLA, moist MMs Neck: no JVD, supple Respiratory: no wheezing, no rales Cardiovascular: RRR, no significant murmur Gastrointestinal: soft, non-tender, positive bowel sounds Musculoskeletal: pulses present right foot in dressing Neurological: non-focal, moves all 4 limbs Psychiatric: normal affect, A&O x 3 Dx/Plan (1) Sepsis Code(s): A41.9 - SEPSIS, UNSPECIFIED ORGANISM Status: Acute Qualifiers: Sepsis type: Streptococcus group B Qualified Code(s): A40.1 - Sepsis due to streptococcus, group B (2) Bacteremia Code(s): R78.81 - BACTEREMIA Status: Acute Comment: streptococcus agalactiae 2/2 (3) Diabetic foot ulcer Code(s): E11.621 - TYPE 2 DIABETES MELLITUS WITH FOOT ULCER; L97.509 - NON- PRESSURE CHRONIC ULCER OTH PRT UNSP FOOT W UNSP SEVERITY Status: Acute Qualifiers: Diabetic foot ulcer location: midfoot Diabetes mellitus type: type 2 Laterality: right Non-pressure ulcer stage: with bone involvement without evidence of necrosis Qualified Code(s): E11.621 - Type 2 diabetes mellitus with foot ulcer; L97.416 - 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 without evidence of necrosis Comment: s/p amp of 5th toe and metatarsal with debribement of dorsal ulcer (4) DM type 2 (diabetes mellitus, type 2) Status: Chronic Qualifiers: 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 Diabetes mellitus complication status: with hyperglycemia Qualified Code(s): E11.65 - Type 2 diabetes mellitus with hyperglycemia Comment: HbA1C of 11.2 (5) Dyslipidemia Code(s): E78.5 - HYPERLIPIDEMIA, UNSPECIFIED Status: Chronic (6) Acute bronchitis Code(s): J20.9 - ACUTE BRONCHITIS, UNSPECIFIED Status: Acute Qualifiers: Bronchitis organism: unspecified organism Qualified Code(s): J20.9 - Acute bronchitis, unspecified Comment: resolving - Plan is on ceftriaxone and oral flagyl -: will take a look at the wound prior to applying wound vac -: is on lantus, glipizide 10mg bid from yest evening -: off steroids from last evening, will follow fingersticks next 24hrs -: will need wound vac for dc, still has exaggerated wbc response to strep inf * . Review of Systems - Medications/Allergies Allergies/Adverse Reactions: Allergies Allergy/AdvReac Type Severity Reaction Status Date / Time levofloxacin [From Levaquin] Allergy Verified 11/24/17 16:30 Medications: Current Medications Acetaminophen (Tylenol) 650 mg PO Q4H PRN PRN Reason: Headache/Fever/Mild Pain (1-3) Acetaminophen (Tylenol) 1,000 mg PO Q6H PRN PRN Reason: Moderate to Severe Pain (6-10) Albuterol/Ipratropium (Duoneb) 3 ml NEB [id number] [facility] Last Admin: 11/27/17 10:07 Dose: Not Given Benzonatate (Tessalon) 100 mg PO TID [facility] Last Admin: 11/27/17 09:21 Dose: 100 mg Dextrose/Water (Dextrose 50%) 25 gm SLOW IVP PRN PRN PRN Reason: Hypoglycemia Enoxaparin Sodium (Lovenox) 40 mg SC 0900 [facility] Last Admin: 11/27/17 09:24 Dose: Not Given Famotidine (Pepcid) 20 mg PO BID [facility] Last Admin: 11/27/17 09:22 Dose: 20 mg Fenofibrate (Tricor) 145 mg PO HS [facility] Last Admin: 11/26/17 20:18 Dose: 145 mg Gabapentin (Neurontin) 300 mg PO TID [facility] Last Admin: 11/27/17 09:22 Dose: 300 mg Glipizide (Glucotrol) 10 mg PO BID [facility] Last Admin: 11/27/17 09:22 Dose: 10 mg Glucagon (Glucagon) 1 mg IM PRN PRN PRN Reason: Hypoglycemia Guaifenesin (Mucinex) 600 mg PO Q12HR [facility] Last Admin: 11/27/17 09:21 Dose: 600 mg Guaifenesin/Dextromethorphan (Robitussin Dm) 15 ml PO Q4H PRN PRN Reason: Cough Dextrose/Water (D5w) 1,000 mls @ 0 mls/hr IV .Q0M PRN PRN Reason: Hypoglycemia Insulin Glargine 15 units/ (Miscellaneous Medication) 0.15 mls @ 0 mls/hr SC BID [facility] Last Admin: 11/27/17 09:23 Dose: 0.15 mls Ceftriaxone Sodium 2 gm/ (Sodium Chloride) 100 mls @ 200 mls/hr IVPB Q24HR [facility] Last Admin: 11/26/17 14:45 Dose: 100 mls Insulin Human Lispro (Humalog) 0 units SC .BEDTIME SLIDING SC PRN PRN Reason: Bedtime Correctional Scale Last Admin: 11/26/17 20:27 Dose: 4 unit Insulin Human Lispro (Humalog) 0 units SC .MODERATE SLIDING SC PRN PRN Reason: Moderate Correctional Scale Last Admin: 11/27/17 05:09 Dose: 4 unit Lisinopril (Zestril) 2.5 mg PO DAILY [facility] Last Admin: 11/27/17 09:22 Dose: 2.5 mg Metronidazole (Flagyl) 500 mg PO TID [facility] Last Admin: 11/27/17 09:22 Dose: 500 mg Polyethylene Glycol (Miralax) 17 gm PO DAILY [facility] Last Admin: 11/27/17 09:24 Dose: Not Given Senna/Docusate Sodium (Senokot S) 2 tab PO BID PRN PRN Reason: Constipation Sodium Chloride (Flush - Normal Saline) 10 ml IVF Q12HR [facility] Last Admin: 11/27/17 09:24 Dose: 10 ml Sodium Chloride (Flush - Normal Saline) 10 ml IVF PRN PRN PRN Reason: Saline Flush Tramadol HCl (Ultram) 50 mg PO Q6H PRN PRN Reason: Mild-Moderate Pain (1-5) Tramadol HCl (Ultram) 100 mg PO Q6H PRN PRN Reason: Moderate to Severe Pain (6-10) Last Admin: 11/26/17 20:24 Dose: 100 mg
[2017-11-27] MEDS: cefTRIAXone\\ROCEPHIN 2 GM in Sodium Chloride 0.9% 100 ML IVPB SCH (14:16)
[2017-11-27] MEDS: traMADol HCl 50 MG TAB PO PRN (15:23)
--- NOTE | 2017-11-27 20:14 | PRG ---
DATE OF SERVICE: 11/27/2017 SUBJECTIVE: Ferdinand Jovel is doing well today. OBJECTIVE: VITAL SIGNS: 99.3, 103, 154/101. LABORATORY DATA: White count 21,000 today, hemoglobin 11.3. White count is down from 29,000 yesterd ay. Basic metabolic profile normal. Accu-Cheks 260-270. Hemoglobin A1c was 11.2 on admission. Foot wound looks good. Dry dressing had to be placed due to bleeding problems over the weekend. He has a small abscess that was drained at the bedside under local. This is a 1-cm area. It is very carrero perficial. Cellulitis is improving. Wound looks good. Wound VAC will be applied. Cultures reveale d Streptococcus. We would continue Zosyn. I think at this point, he will be discharged home with Sugar chenentin p.o. We will await for his white count to normalize. He has severe infection. Continue IV antibiotics for now.
[2017-11-27] MEDS: Fenofibrate Nanocrystallized 145 MG TAB PO SCH (20:24)
--- NOTE | 2017-11-27 23:52 | OP ---
PREOPERATIVE DIAGNOSIS: Small abscess, right foot. PROCEDURE: Incision and drainage of small abscess, right foot. Procedure at the patient's bedside, drainage of small abscess, right foot, incision and drainage. SURGEON: Dr. Alec Carey. ANESTHESIA: 1% Xylocaine with epinephrine local anesthetic. 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 This 1 cm area was cleansed with Betadine, anesthetized with local anesthetic. An opening made, puru lent discharge was expressed from this area, this was very superficial. Wound left open. Wound care place a wound VAC over the wound. The patient tolerated the procedure well.
[2017-11-28 05:22] LABS: Hemoglobin 11.2 g/dL (14.0-18.0); Hypochromia SLIGHT = 6-15 cells (100X) (0-5/hpf); Lymphocytes 21 % (21-51); MDiff Complete? YES; Mean Corpuscular HGB CONC 31.6 g/dL (32.0-36.0); Mean Corpuscular Hemoglobin 27.2 pg (27.0-31.0); Mean Platelet Volume 9.4 fL (7.4-10.4); Monocytes 5 % (0-10); Neutrophil 71 % (42-75); PLT Morphology Comment Appears Adequate; Platelet Count 273 thou/uL (130-400); Reactive Lymphocytes 3 % (0-10); Red Blood Cell (RBC) Count 4.13 mill/uL (4.70-6.10); White Blood Cell (WBC) Count 21.2 thou/uL (4.8-10.8)
[2017-11-28] MEDS: HumaLOG 300 UNITS/3 ML VIAL SC PRN (05:26)
[2017-11-28 05:39] LABS: Anion Gap 8 mmol/L (10-20); BUN (Urea Nitrogen) 9 mg/dL (8.9-20.6); Calc. Creatinine Clearance 171 mL/min (70-130); Calcium 8.2 mg/dL (7.8-10.44); Carbon Dioxide 26 mmol/L (22-29); Chloride 102 mmol/L (98-107); Estimated GFR-MDRD Greater than 90; Glucose 184 mg/dL (70-105); Potassium 3.9 mmol/L (3.5-5.1); Sodium 132 mmol/L (136-145)
--- NOTE | 2017-11-28 07:53 | PRG ---
DATE OF SERVICE: 11/27/2017 SUBJECTIVE: The patient is feeling very well, coughing, and having posterior nasal drip. No chest p ain, no abdominal pain, no diarrhea. SUBJECTIVE: VITAL SIGNS: T-max 99.3, blood pressure 140/90, pulse 103, respiratory rate 16, O2 sat 92%, was not feeling very well during the examination because of coughing spells. LUNGS: Symmetric air entry. HEART: S1, S2, regular rate. ABDOMEN: Soft, not distended. The left foot amputation site was undressed and I believe the negativ e pressure dressing was being placed at the time. The wound care team was not in the room. White cell count is down to 21.5, hemoglobin 11, platelets 305. Sodium 133, creatinine 0.78. Hepatitis C and HIV serology negative. Microbiology with group B strep and Streptococcus anginosus and 3 different anaerobics including 1 gram negative arlene anaerobe. 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 The patient was switched to Rocephin and Flagyl and still not ready for discharge, still not doing ve ry well with some respiratory symptoms, maybe related to the bacteremia and maybe in the next 1-2 day s be ready for transition to oral antimicrobial therapy with Keflex and Flagyl. I would probably abraham at him for at least 3, if not 4 weeks, with oral antimicrobials to prevent recrudescence of inflammat ory process.
[2017-11-28] MEDS: guaiFENesin ER 600 MG TAB PO SCH ×2 (08:37→21:17)
[2017-11-28] MEDS: Lisinopril 2.5 MG TAB PO SCH (08:37)
[2017-11-28] MEDS: Benzonatate 100 MG CAP PO SCH ×3 (08:37→21:16)
[2017-11-28] MEDS: metroNIDAZOLE 500 MG TAB PO SCH ×3 (08:38→21:16)
[2017-11-28] MEDS: Gabapentin 300 MG CAP PO SCH ×3 (08:38→21:17)
[2017-11-28] MEDS: glipiZIDE 10 MG TAB PO SCH ×2 (08:38→21:16)
[2017-11-28] MEDS: Famotidine 20 MG TAB PO SCH ×2 (08:38→21:17)
[2017-11-28] MEDS: Insulin Glargine 15 UNITS in Pre-Filled Syringe 1 EACH SC SCH ×2 (08:39→21:18)
[2017-11-28] MEDS: Enoxaparin Sodium 40 MG/0.4 ML SYRINGE SC SCH (08:39)
[2017-11-28] MEDS: Polyethylene Glycol 3350 17 GM Packet PO SCH (08:42)
[2017-11-28] MEDS ORDERED: Saccharomyces boulardii 250 MG CAP PO SCH (12:15)
--- NOTE | 2017-11-28 14:23 | PDOC.PN ---
- Subjective Encounter Start Date: 11/28/17 Encounter Start Time: 14:21 Subjective: feels that he has worsening of redness in affected leg -: also feels that leg is more stiff and warm - Objective Resuscitation Status: Resuscitation Status FULL:Full Resuscitation MAR Reviewed: Yes Vital Signs & Weight: Vital Signs (12 hours) Temp Pulse Resp BP Pulse Ox 11/28/17 08:37 96 11/28/17 08:00 98.4 F 96 20 148/93 H 94 L Weight Admit Weight 266 lb 1.6 oz Weight 226 lb 1.6 oz I&O: 11/27/17 11/28/17 11/29/17 06:59 06:59 06:59 Intake Total 1600 1210 Balance 1600 1210 Result Diagrams: 11/28/17 04:24 11/28/17 04:24 Additional Labs: Accuchecks 11/28/17 11/28/17 11/27/17 11:18 04:32 20:23 POC Glucose 163 H 183 H 244 H 11/27/17 16:09 POC Glucose 123 H Microbiology 11/24/17 20:03 Toe - Abscess Bacterial Culture - Final 11/24/17 20:03 Toe - Abscess Anaerobic Culture - Final Streptococcus agalactiae Gp. B Streptococcus anginosus Group Anaerobic cocci Anaerobic Gram Negative [place] 11/24/17 11:55 Urine voided Urine Culture - Final Beta-hemolytic Streptococcus 11/24/17 11:44 Venous blood - Left Arm Blood Culture - Final Streptococcus agalactiae Gp. B Streptococcus anginosus Group 11/24/17 11:42 Venous blood - Right Arm Blood Culture - Final Streptococcus agalactiae Gp. B Streptococcus anginosus Group Laboratory Tests 11/24/17 11/25/17 11/25/17 11:42 04:54 13:56 WBC 23.3 H 19.7 H Hepatitis C Antibody Non-Reactive HIV 1&2 Antigen & Ab Non-Reactive 11/26/17 11/27/17 11/28/17 08:02 05:02 04:24 WBC 29.4 H 21.5 H 21.2 H Hepatitis C Antibody HIV 1&2 Antigen & Ab Phys Exam - Physical Examination Constitutional: NAD HEENT: PERRLA, moist MMs, sclera anicteric, oral pharynx no lesions Neck: no nodes, no JVD, supple, full ROM Respiratory: no wheezing, no rales, no rhonchi, clear to auscultation bilateral Cardiovascular: RRR, no significant murmur, no rub Gastrointestinal: soft, non-tender, no distention Musculoskeletal: pulses present, edema present extension of erythema & warmth beyong marked level R leg w edema Neurological: non-focal, normal sensation, moves all 4 limbs Psychiatric: normal affect, A&O x 3 Skin: no rash Dx/Plan (1) Sepsis Code(s): A41.9 - SEPSIS, UNSPECIFIED ORGANISM Status: Acute Qualifiers: Sepsis type: Streptococcus group B Qualified Code(s): A40.1 - Sepsis due to streptococcus, group B (2) Diabetic foot ulcer Code(s): E11.621 - TYPE 2 DIABETES MELLITUS WITH FOOT ULCER; L97.509 - NON- PRESSURE CHRONIC ULCER OTH PRT UNSP FOOT W UNSP SEVERITY Status: Acute Qualifiers: Diabetic foot ulcer location: midfoot Diabetes mellitus type: type 2 Laterality: right Non-pressure ulcer stage: with bone involvement without evidence of necrosis Qualified Code(s): E11.621 - Type 2 diabetes mellitus with foot ulcer; L97.416 - 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 without evidence of necrosis Comment: s/p amp of 5th toe and metatarsal with debribement of dorsal ulcer (3) Bacteremia Code(s): R78.81 - BACTEREMIA Status: Acute Comment: streptococcus agalactiae 2/2 (4) Acute bronchitis Code(s): J20.9 - ACUTE BRONCHITIS, UNSPECIFIED Status: Acute Qualifiers: Bronchitis organism: unspecified organism Qualified Code(s): J20.9 - Acute bronchitis, unspecified Comment: resolving (5) DM type 2 (diabetes mellitus, type 2) Status: Chronic 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 -: will r/o DVt w Doppler -: Discussed w ID to evaluate again.on appropriate ABx -: clinically better but persistant leucocytosis.no fever -: cont meds as below.add probiotics for ABx associated diarrhea. * . Review of Systems - Review of Systems Constitutional: negative: fever, chills, sweats, weakness, malaise, other ENT: negative: Ear Pain, Ear Discharge, Nose Pain, Nose Discharge, Nose Congestion, Mouth Pain, Mouth Swelling, Throat Pain, Throat Swelling, Other Respiratory: negative: Cough, Dry, Shortness of Breath, Hemoptysis, SOB with Excertion, Pleuritic Pain, Sputum, Wheezing Cardiovascular: negative: chest pain, palpitations, orthopnea, paroxysmal nocturnal dyspnea, edema, light headedness, other Gastrointestinal: negative: Nausea, Vomiting, Abdominal Pain, Diarrhea, Constipation, Melena, Hematochezia, Other Genitourinary: negative: Dysuria, Frequency, Incontinence, Hematuria, Retention , Other Musculoskeletal: negative: Neck Pain, Shoulder Pain, Arm Pain, Back Pain, Hand Pain, Leg Pain, Foot Pain, Other Skin: Rash - Medications/Allergies Allergies/Adverse Reactions: Allergies Allergy/AdvReac Type Severity Reaction Status Date / Time levofloxacin [From Levaquin] Allergy Verified 11/24/17 16:30 Medications: Current Medications Acetaminophen (Tylenol) 650 mg PO Q4H PRN PRN Reason: Headache/Fever/Mild Pain (1-3) Acetaminophen (Tylenol) 1,000 mg PO Q6H PRN PRN Reason: Moderate to Severe Pain (6-10) Albuterol/Ipratropium (Duoneb) 3 ml NEB Q6H PRN PRN Reason: SOB &/or Wheezing Benzonatate (Tessalon) 100 mg PO TID [facility] Last Admin: 11/28/17 08:37 Dose: 100 mg Dextrose/Water (Dextrose 50%) 25 gm SLOW IVP PRN PRN PRN Reason: Hypoglycemia Enoxaparin Sodium (Lovenox) 40 mg SC 0900 [facility] Last Admin: 11/28/17 08:39 Dose: 40 mg Famotidine (Pepcid) 20 mg PO BID [facility] Last Admin: 11/28/17 08:38 Dose: 20 mg Fenofibrate (Tricor) 145 mg PO HS [facility] Last Admin: 11/27/17 20:24 Dose: 145 mg Gabapentin (Neurontin) 300 mg PO TID [facility] Last Admin: 11/28/17 08:38 Dose: 300 mg Glipizide (Glucotrol) 10 mg PO BID [facility] Last Admin: 11/28/17 08:38 Dose: 10 mg Glucagon (Glucagon) 1 mg IM PRN PRN PRN Reason: Hypoglycemia Guaifenesin (Mucinex) 600 mg PO Q12HR [facility] Last Admin: 11/28/17 08:37 Dose: 600 mg Guaifenesin/Dextromethorphan (Robitussin Dm) 15 ml PO Q4H PRN PRN Reason: Cough Dextrose/Water (D5w) 1,000 mls @ 0 mls/hr IV .Q0M PRN PRN Reason: Hypoglycemia Insulin Glargine 15 units/ (Miscellaneous Medication) 0.15 mls @ 0 mls/hr SC BID [facility] Last Admin: 11/28/17 08:39 Dose: 0.15 mls Ceftriaxone Sodium 2 gm/ (Sodium Chloride) 100 mls @ 200 mls/hr IVPB Q24HR [facility] Last Admin: 11/27/17 14:16 Dose: 100 mls Insulin Human Lispro (Humalog) 0 units SC .BEDTIME SLIDING SC PRN PRN Reason: Bedtime Correctional Scale Last Admin: 11/27/17 20:26 Dose: 2 unit Insulin Human Lispro (Humalog) 0 units SC .MODERATE SLIDING SC PRN PRN Reason: Moderate Correctional Scale Last Admin: 11/28/17 05:26 Dose: 2 unit Lisinopril (Zestril) 2.5 mg PO DAILY [facility] Last Admin: 11/28/17 08:37 Dose: 2.5 mg Metronidazole (Flagyl) 500 mg PO TID [facility] Last Admin: 11/28/17 08:38 Dose: 500 mg Polyethylene Glycol (Miralax) 17 gm PO DAILY [facility] Last Admin: 11/28/17 08:42 Dose: Not Given Saccharomyces Boulardii (Florastor) 250 mg PO DAILY [facility] Senna/Docusate Sodium (Senokot S) 2 tab PO BID PRN PRN Reason: Constipation Sodium Chloride (Flush - Normal Saline) 10 ml IVF Q12HR [facility] Last Admin: 11/28/17 08:40 Dose: 10 ml Sodium Chloride (Flush - Normal Saline) 10 ml IVF PRN PRN PRN Reason: Saline Flush Tramadol HCl (Ultram) 50 mg PO Q6H PRN PRN Reason: Mild-Moderate Pain (1-5) Tramadol HCl (Ultram) 100 mg PO Q6H PRN PRN Reason: Moderate to Severe Pain (6-10) Last Admin: 11/27/17 15:23 Dose: 100 mg
--- NOTE | 2017-11-28 15:03 | ULT ---
RIGHT LOWER EXTREMITY VENOUS DUPLEX EXAM: Technique: Deep veins of the right lower extremity were evaluated with color doppler, spectral analys is and compression. Indication: Right lower extremity edema and redness. FINDINGS: Deep veins of the right lower extremity show normal blood flow and compression. No evidence of right lower extremity DVT. Enlarged lymph nodes in the right inguinal region noted. IMPRESSION: No evidence of right lower extremity DVT. POS: [facility]
[2017-11-28] MEDS: cefTRIAXone\\ROCEPHIN 2 GM in Sodium Chloride 0.9% 100 ML IVPB SCH (15:07)
[2017-11-28] MEDS: Fenofibrate Nanocrystallized 145 MG TAB PO SCH (21:17)
[2017-11-29 06:08] LABS: Anion Gap 8 mmol/L (10-20); BUN (Urea Nitrogen) 8 mg/dL (8.9-20.6); Calc. Creatinine Clearance 175 mL/min (70-130); Calcium 8.4 mg/dL (7.8-10.44); Carbon Dioxide 28 mmol/L (22-29); Chloride 104 mmol/L (98-107); Estimated GFR-MDRD Greater than 90; Glucose 140 mg/dL (70-105); Potassium 4.4 mmol/L (3.5-5.1); Sodium 136 mmol/L (136-145)
[2017-11-29 06:48] LABS: Band 2 % (5-11); Eosinophils 2 % (0-10); Hemoglobin 11.7 g/dL (14.0-18.0); Lymphocytes 15 % (21-51); MDiff Complete? YES; Mean Corpuscular HGB CONC 31.5 g/dL (32.0-36.0); Mean Corpuscular Hemoglobin 27.3 pg (27.0-31.0); Mean Corpuscular Volume 86.6 fL (78.0-98.0); Mean Platelet Volume 9.5 fL (7.4-10.4); Metamyelocyte 1 % (0-0); Monocytes 15 % (0-10); Myelocyte 1 % (0-0); Neutrophil 64 % (42-75); Nucleated RBC 1 % (0); PLT Morphology Comment Appears Adequate; Platelet Count 293 thou/uL (130-400); RBC Distribution Width 13.1 % (11.5-14.5); White Blood Cell (WBC) Count 22.3 thou/uL (4.8-10.8)
[2017-11-29] MEDS ORDERED: Lactated Ringer's 1,000 ML IV SCH (07:30)
--- NOTE | 2017-11-29 07:40 | PRG ---
DATE OF SERVICE: 11/29/2017 SUBJECTIVE: Mr. Jovel is doing well. He does not have any complaints. OBJECTIVE: VITAL SIGNS: He remains afebrile, 98.8 degrees, heart rate 88, 158/97. LABORATORY DATA: His white blood cell count remains elevated, it is , hemoglobin 11.7. IMPRESSION AND PLAN: This morning his right foot looks better, but he has increased cellulitis track ing up the anteromedial aspect of his right leg. It is indurated firm. With his elevated white bloo d cell count and progressive cellulitis and induration, I would recommend incision and drainage of th e right leg abscess today. We would keep him n.p.o. We will plan that this morning and with wound VA C application in the OR. We will plan incision and drainage and indicated procedures based on intrao perative findings.
[2017-11-29] MEDS: guaiFENesin ER 600 MG TAB PO SCH ×2 (07:56→20:07)
[2017-11-29] MEDS: Gabapentin 300 MG CAP PO SCH ×3 (07:56→20:07)
[2017-11-29] MEDS: Saccharomyces boulardii 250 MG CAP PO SCH (07:57)
[2017-11-29] MEDS: Famotidine 20 MG TAB PO SCH ×2 (07:57→20:07)
[2017-11-29] MEDS: Benzonatate 100 MG CAP PO SCH ×3 (07:57→20:07)
[2017-11-29] MEDS: glipiZIDE 10 MG TAB PO SCH ×2 (07:57→20:07)
[2017-11-29] MEDS: Enoxaparin Sodium 40 MG/0.4 ML SYRINGE SC SCH ×2 (07:57→08:00)
[2017-11-29] MEDS: metroNIDAZOLE 500 MG TAB PO SCH ×3 (07:57→20:06)
[2017-11-29] MEDS: Lisinopril 2.5 MG TAB PO SCH (07:57)
[2017-11-29] MEDS: Polyethylene Glycol 3350 17 GM Packet PO SCH (07:58)
[2017-11-29] MEDS: Insulin Glargine 15 UNITS in Pre-Filled Syringe 1 EACH SC SCH ×2 (08:40→20:09)
[2017-11-29] MEDS ORDERED: Fentanyl 100 MCG/2 ML VIAL ONE (10:40)
--- NOTE | 2017-11-29 11:56 | OP ---
DATE OF PROCEDURE: 11/29/2017 PREOPERATIVE DIAGNOSES: Severe diabetic infection of right foot with extension abscess right leg wit h persistent leukocytosis. POSTOPERATIVE DIAGNOSES: Severe diabetic infection of right foot with extension abscess right leg wi th persistent leukocytosis. PROCEDURE: Incision and drainage right leg abscess mid to proximal medial right leg below the knee. Two incisions and drainage of abscess over proximal foot. SURGEON: Dr. Alec Carey ANESTHESIA: General anesthesia. Wound care team arrived to place a wound VAC at the end of procedure. C&S stent of the new culture f rom purulent material from the legs. PROCEDURE: The patient was taken to the operating room where under general anesthesia, right lower e xtremity was prepped with Betadine, draped in routine fashion. The patient had an abscess over the a nteromedial right leg mid ways. Incision made approximately 6 cm and drained purulent material in th is tract inferiorly where a counter incision made below this about 3.5 cm draining purulent material. There was some reddened areas between the ankle and this area that were drained and no purulent mat erial noted. Necrotic tissue debrided from the wound edges on the foot wound previously amputated pa rtial right fifth toe and metatarsal necrotic skin and subcutaneous tissue debrided sharply resected excisional 10 blade. At the end of the procedure wound pulse irrigated. Culture and sensitivity sub mitted to Microbiology. Wound care team arrived to place a wound VAC.
[2017-11-29] MEDS ORDERED: Promethazine HCl 25 MG/ML VIAL SLOW IVP PRN (12:25)
[2017-11-29] MEDS ORDERED: Promethazine HCl 25 MG/ML VIAL IM PRN (12:25)
[2017-11-29] MEDS ORDERED: Ondansetron HCl/PF 4 MG/2 ML Vial IVP PRN (12:25)
[2017-11-29] MEDS ORDERED: Promethazine HCl 25 MG/ML VIAL ONE (12:36)
[2017-11-29] MEDS: traMADol HCl 50 MG TAB PO PRN (13:26)
[2017-11-29] MEDS: cefTRIAXone\\ROCEPHIN 2 GM in Sodium Chloride 0.9% 100 ML IVPB SCH (13:32)
[2017-11-29] MEDS: HumaLOG 300 UNITS/3 ML VIAL SC PRN ×3 (13:33→20:09)
--- NOTE | 2017-11-29 13:39 | PRG ---
DATE OF SERVICE: 11/29/2017 HISTORY: The patient had a further I&D by Dr. Carey. Apparently, there was some tracking of areas of inflammatory change. The operative report was reviewed and apparently, there was an abscess that tracked to the anteromedial leg. An incision was made and purulent material drained, about 3.5 cm. No purulent material elsewhere noted. Some necrotic tissue around the edges of the previous wound were debrided and negative pressure dressing placed following that. The pathology of the surgical specimen showed ischemic ulceration and inflammatory changes extending to the soft tissue margin. Currently, he is feeling well. Denies any headaches, visual symptoms, sore throat, or dysphagia. No cough or sputum production or chest pain, no abdominal pain. Not much pain in the operative site. PHYSICAL EXAMINATION: VITAL SIGNS: T-max 98.8, blood pressure 160/108, respirations 16, O2 sat 95%. GENERAL: Appears in no distress. HEENT: Ocular movements conjugate. LUNGS: Clear to auscultation and percussion. HEART: S1, S2, regular rate. No S3, S4. ABDOMEN: Soft. EXTREMITIES: Right foot with a negative pressure dressing. The leg with decrease in the amount of erythema. LABORATORY DATA: White cell count is at 22.3, hemoglobin 11, platelets 293, 64 % neutrophils. Sodium 136, creatinine 0.74 and microbiology with group B Strep anginosus and 2 different anaerobes. ASSESSMENT AND DISCUSSION: Neuropathy, type 2 diabetes, inflammatory process of right foot with ulcer extending to the MPJ, status post fifth ray amputation , group B strep bacteremia, polymicrobial shawanda at the amputation site, now with further I&D of abscesses in more proximal areas of the mid foot region and distal right ankle. Currently on Rocephin and Flagyl to be continued. Eventual transition to oral Keflex and oral Flagyl once there is improvement of the inflammatory process. MTDD
[2017-11-29] MEDS ORDERED: cloNIDine 0.1 MG TAB PO PRN (16:30)
--- NOTE | 2017-11-29 16:30 | PDOC.PN ---
- Subjective Encounter Start Date: 11/29/17 Encounter Start Time: 16:28 Subjective: s/p drainage of R leg abscess today -: feels well.no N/V/D - Objective Resuscitation Status: Resuscitation Status FULL:Full Resuscitation MAR Reviewed: Yes Vital Signs & Weight: Vital Signs (12 hours) Temp Pulse Resp BP BP BP Pulse Ox 11/29/17 16:00 97.8 F 102 H 16 151/90 H 93 L 11/29/17 12:55 97.0 F L 92 18 139/100 H 95 11/29/17 09:05 98.3 F 88 16 169/108 H 95 11/29/17 08:00 94 L 11/29/17 07:57 86 168/106 H 11/29/17 07:45 98.1 F 86 18 168/106 H 94 L Weight Admit Weight 266 lb 1.6 oz Weight 226 lb 1.6 oz I&O: 11/28/17 11/29/17 11/30/17 06:59 06:59 06:59 Intake Total 1210 1100 Output Total 50 Balance 1210 1100 -50 Result Diagrams: 11/29/17 04:21 11/29/17 04:21 Additional Labs: Accuchecks 11/29/17 11/29/17 11/28/17 13:07 04:38 20:03 POC Glucose 207 H 141 H 204 H 11/28/17 16:30 POC Glucose 162 H Microbiology 11/24/17 20:03 Toe - Abscess Bacterial Culture - Final 11/24/17 20:03 Toe - Abscess Anaerobic Culture - Final Streptococcus agalactiae Gp. B Streptococcus anginosus Group Anaerobic cocci Anaerobic Gram Negative [place] 11/24/17 11:55 Urine voided Urine Culture - Final Beta-hemolytic Streptococcus 11/24/17 11:44 Venous blood - Left Arm Blood Culture - Final Streptococcus agalactiae Gp. B Streptococcus anginosus Group 11/24/17 11:42 Venous blood - Right Arm Blood Culture - Final Streptococcus agalactiae Gp. B Streptococcus anginosus Group Phys Exam - Physical Examination Constitutional: NAD HEENT: PERRLA, moist MMs, sclera anicteric, oral pharynx no lesions, 2+ tonsils Neck: no nodes, no JVD, supple, full ROM Respiratory: no wheezing, no rales, no rhonchi, clear to auscultation bilateral Cardiovascular: RRR, no significant murmur, no rub Gastrointestinal: soft, non-tender, no distention, positive bowel sounds Musculoskeletal: no edema, pulses present R leg wound vac Lymphatic: no nodes Psychiatric: normal affect, A&O x 3 Skin: no rash Dx/Plan (1) Sepsis Code(s): A41.9 - SEPSIS, UNSPECIFIED ORGANISM Status: Acute Qualifiers: Sepsis type: Streptococcus group B Qualified Code(s): A40.1 - Sepsis due to streptococcus, group B (2) Diabetic foot ulcer Code(s): E11.621 - TYPE 2 DIABETES MELLITUS WITH FOOT ULCER; L97.509 - NON- PRESSURE CHRONIC ULCER OTH PRT UNSP FOOT W UNSP SEVERITY Status: Acute Qualifiers: Diabetic foot ulcer location: midfoot Diabetes mellitus type: type 2 Laterality: right Non-pressure ulcer stage: with bone involvement without evidence of necrosis Qualified Code(s): E11.621 - Type 2 diabetes mellitus with foot ulcer; L97.416 - 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 without evidence of necrosis Comment: s/p amp of 5th toe and metatarsal with debribement of dorsal ulcer.Extension into leg with abscess formation.S/P abscess darin[place] 11/29/17 (3) Bacteremia Code(s): R78.81 - BACTEREMIA Status: Acute Comment: streptococcus agalactiae / (4) Acute bronchitis Code(s): J20.9 - ACUTE BRONCHITIS, UNSPECIFIED Status: Acute Qualifiers: Bronchitis organism: unspecified organism Qualified Code(s): J20.9 - Acute bronchitis, unspecified Comment: resolving (5) DM type 2 (diabetes mellitus, type 2) Status: Chronic Qualifiers: Diabetes mellitus long term care pharmacist insulin use: without assisted use Diabetes mellitus complication status: with hyperglycemia Qualified Code(s): E11.65 - Type 2 diabetes mellitus with hyperglycemia Comment: HbA1C of 11.2 (6) Dyslipidemia Code(s): E78.5 - HYPERLIPIDEMIA, UNSPECIFIED Status: Chronic (7) HTN (hypertension) Code(s): I10 - ESSENTIAL (PRIMARY) HYPERTENSION Status: Acute - Plan continue antibiotics, out of bed/ambulate, DVT proph w/SCDs BP running high.increase lisinopril.add prn.no H/O HTN -: cont empiri cIV abx.clinically better -: AM labs -: restart Testosterone per pt request -: Wound care & wound Vac for DC . * . Review of Systems - Review of Systems Constitutional: negative: fever, chills, sweats, weakness, malaise, other ENT: negative: Ear Pain, Ear Discharge, Nose Pain, Nose Discharge, Nose Congestion, Mouth Pain, Mouth Swelling, Throat Pain, Throat Swelling, Other Respiratory: negative: Cough, Dry, Shortness of Breath, Hemoptysis, SOB with Excertion, Pleuritic Pain, Sputum, Wheezing Cardiovascular: negative: chest pain, palpitations, orthopnea, paroxysmal nocturnal dyspnea, edema, light headedness, other Gastrointestinal: negative: Nausea, Vomiting, Abdominal Pain, Diarrhea, Constipation, Melena, Hematochezia, Other Genitourinary: negative: Dysuria, Frequency, Incontinence, Hematuria, Retention , Other Musculoskeletal: negative: Neck Pain, Shoulder Pain, Arm Pain, Back Pain, Hand Pain, Leg Pain, Foot Pain, Other Neurological: negative: Weakness, Numbness, Incoordination, Change in Speech, Confusion, Seizures, Other - Medications/Allergies Allergies/Adverse Reactions: Allergies Allergy/AdvReac Type Severity Reaction Status Date / Time [facility] [place] Allergy Verified 11/24/17 16:30 Medications: Current Medications Acetaminophen (Tylenol) 650 mg PO Q4H PRN PRN Reason: Headache/Fever/Mild Pain (1-3) Acetaminophen (Tylenol) 1,000 mg PO Q6H PRN PRN Reason: Moderate to Severe Pain (6-10) Albuterol/Ipratropium (Duoneb) 3 ml NEB Q6H PRN PRN Reason: SOB &/or Wheezing Benzonatate (Tessalon) 100 mg PO TID [facility] Last Admin: 11/29/17 14:43 Dose: 100 mg Dextrose/Water (Dextrose 50%) 25 gm SLOW IVP PRN PRN PRN Reason: Hypoglycemia Enoxaparin Sodium (Lovenox) 40 mg SC 0900 [facility] Last Admin: 11/29/17 08:00 Dose: Not Given Famotidine (Pepcid) 20 mg PO BID [facility] Last Admin: 11/29/17 07:57 Dose: 20 mg Fenofibrate (Tricor) 145 mg PO HS [facility] Last Admin: 11/28/17 21:17 Dose: 145 mg Gabapentin (Neurontin) 300 mg PO TID [facility] Last Admin: 11/29/17 14:43 Dose: 300 mg Glipizide (Glucotrol) 10 mg PO BID [facility] Last Admin: 11/29/17 07:57 Dose: 10 mg Glucagon (Glucagon) 1 mg IM PRN PRN PRN Reason: Hypoglycemia Guaifenesin (Mucinex) 600 mg PO Q12HR [facility] Last Admin: 11/29/17 07:56 Dose: 600 mg Guaifenesin/Dextromethorphan (Robitussin Dm) 15 ml PO Q4H PRN PRN Reason: Cough Dextrose/Water (D5w) 1,000 mls @ 0 mls/hr IV .Q0M PRN PRN Reason: Hypoglycemia Insulin Glargine 15 units/ (Miscellaneous Medication) 0.15 mls @ 0 mls/hr SC BID [facility] Last Admin: 11/29/17 08:40 Dose: 0.15 mls Ceftriaxone Sodium 2 gm/ (Sodium Chloride) 100 mls @ 200 mls/hr IVPB Q24HR [facility] Last Admin: 11/29/17 13:32 Dose: 100 mls Insulin Human Lispro (Humalog) 0 units SC .BEDTIME SLIDING SC PRN PRN Reason: Bedtime Correctional Scale Last Admin: 11/27/17 20:26 Dose: 2 unit Insulin Human Lispro (Humalog) 0 units SC .MODERATE SLIDING SC PRN PRN Reason: Moderate Correctional Scale Last Admin: 11/29/17 13:33 Dose: 4 unit Lisinopril (Zestril) 2.5 mg PO DAILY [facility] Last Admin: 11/29/17 07:57 Dose: 2.5 mg Metronidazole (Flagyl) 500 mg PO TID [facility] Last Admin: 11/29/17 14:43 Dose: 500 mg Polyethylene Glycol (Miralax) 17 gm PO DAILY [facility] Last Admin: 11/29/17 07:58 Dose: Not Given Saccharomyces Boulardii (Florastor) 250 mg PO DAILY [facility] Last Admin: 11/29/17 07:57 Dose: 250 mg Senna/Docusate Sodium (Senokot S) 2 tab PO BID PRN PRN Reason: Constipation Sodium Chloride (Flush - Normal Saline) 10 ml IVF Q12HR [facility] Last Admin: 11/29/17 07:58 Dose: 10 ml Sodium Chloride (Flush - Normal Saline) 10 ml IVF PRN PRN PRN Reason: Saline Flush Tramadol HCl (Ultram) 50 mg PO Q6H PRN PRN Reason: Mild-Moderate Pain (1-5) Last Admin: 11/29/17 07:09 Dose: 50 mg Tramadol HCl (Ultram) 100 mg PO Q6H PRN PRN Reason: Moderate to Severe Pain (6-10) Last Admin: 11/29/17 13:26 Dose: 100 mg
[2017-11-29] MEDS ORDERED: Ondansetron HCl/PF 4 MG/2 ML Vial ONE (17:45)
[2017-11-29] MEDS ORDERED: PROPOFOL 200 MG/20 ML VIAL ONE (17:45)
[2017-11-29] MEDS ORDERED: Dexamethasone 20 MG/5 ML VIAL ONE (17:45)
[2017-11-29] MEDS: Lisinopril 5 MG TAB PO SCH (20:06)
[2017-11-29] MEDS: Fenofibrate Nanocrystallized 145 MG TAB PO SCH (20:07)
[2017-11-30] MEDS: HumaLOG 300 UNITS/3 ML VIAL SC PRN ×3 (05:15→17:18)
[2017-11-30 07:21] LABS: #Basophils 0.1 thou/uL (0.0-0.2); #Eosinphils 0.6 thou/uL (0.0-0.7); #Lymphocytes 3.3 thou/uL (1.20-3.40); #Neutrophils 16.9 thou/uL (1.40-6.50); %Basophils 0.3 % (0.0-1.0); %Eosinophils 2.7 % (0.0-10.0); %Lymphocytes 14.6 % (21.0-51.0); %Monocytes 8.7 % (0.0-10.0); %Neutrophils 73.7 % (42.0-75.0); Hemoglobin 11.9 g/dL (14.0-18.0); Mean Corpuscular HGB CONC 30.9 g/dL (32.0-36.0); Mean Corpuscular Hemoglobin 26.8 pg (27.0-31.0); Mean Corpuscular Volume 86.6 fL (78.0-98.0); Mean Platelet Volume 8.7 fL (7.4-10.4); Platelet Count 370 thou/uL (130-400); RBC Distribution Width 13.2 % (11.5-14.5); Red Blood Cell (RBC) Count 4.44 mill/uL (4.70-6.10); White Blood Cell (WBC) Count 22.9 thou/uL (4.8-10.8)
[2017-11-30 07:39] LABS: Anion Gap 10 mmol/L (10-20); BUN (Urea Nitrogen) 11 mg/dL (8.9-20.6); Calc. Creatinine Clearance 180 mL/min (70-130); Calcium 8.4 mg/dL (7.8-10.44); Carbon Dioxide 24 mmol/L (22-29); Chloride 104 mmol/L (98-107); Estimated GFR-MDRD Greater than 90; Glucose 200 mg/dL (70-105); Potassium 4.3 mmol/L (3.5-5.1); Sodium 134 mmol/L (136-145)
[2017-11-30] MEDS: metroNIDAZOLE 500 MG TAB PO SCH ×3 (09:22→20:19)
[2017-11-30] MEDS: Benzonatate 100 MG CAP PO SCH ×3 (09:23→20:19)
[2017-11-30] MEDS: Gabapentin 300 MG CAP PO SCH ×3 (09:23→20:19)
[2017-11-30] MEDS: guaiFENesin ER 600 MG TAB PO SCH ×2 (09:23→20:19)
[2017-11-30] MEDS: Lisinopril 5 MG TAB PO SCH ×2 (09:23→20:19)
[2017-11-30] MEDS: Saccharomyces boulardii 250 MG CAP PO SCH (09:23)
[2017-11-30] MEDS: Famotidine 20 MG TAB PO SCH ×2 (09:23→20:19)
[2017-11-30] MEDS: Insulin Glargine 15 UNITS in Pre-Filled Syringe 1 EACH SC SCH ×2 (09:23→20:18)
[2017-11-30] MEDS: glipiZIDE 10 MG TAB PO SCH ×2 (09:23→20:19)
[2017-11-30] MEDS: Polyethylene Glycol 3350 17 GM Packet PO SCH (09:24)
[2017-11-30] MEDS: Enoxaparin Sodium 40 MG/0.4 ML SYRINGE SC SCH (09:24)
--- NOTE | 2017-11-30 13:51 | PDOC.PN ---
- Subjective Encounter Start Date: 11/30/17 Encounter Start Time: 13:49 Subjective: feels well. no new compliants -: feels the redness in R leg is going down. no leg pain - Objective Resuscitation Status: Resuscitation Status FULL:Full Resuscitation MAR Reviewed: Yes Vital Signs & Weight: Vital Signs (12 hours) Temp Pulse Resp BP BP Pulse Ox 11/30/17 09:23 87 148/95 H 11/30/17 08:00 94 L 11/30/17 07:42 98.3 F 93 21 H 148/95 H 94 L Weight Admit Weight 226 lb 1.6 oz Weight 226 lb 1.6 oz I&O: 11/29/17 11/30/17 12/01/17 06:59 06:59 06:59 Intake Total 1100 840 480 Output Total 75 Balance 1100 765 480 Result Diagrams: 11/30/17 07:08 11/30/17 07:08 Additional Labs: Accuchecks 11/30/17 11/30/17 11/29/17 11:19 04:56 19:51 POC Glucose 184 H 258 H 305 H 11/29/17 16:17 POC Glucose 352 H Microbiology 11/24/17 20:03 Toe - Abscess Bacterial Culture - Final 11/24/17 20:03 Toe - Abscess Anaerobic Culture - Final Streptococcus agalactiae Gp. B Streptococcus anginosus Group Anaerobic cocci Anaerobic Gram Negative [place] 11/24/17 11:55 Urine voided Urine Culture - Final Beta-hemolytic Streptococcus 11/24/17 11:44 Venous blood - Left Arm Blood Culture - Final Streptococcus agalactiae Gp. B Streptococcus anginosus Group 11/24/17 11:42 Venous blood - Right Arm Blood Culture - Final Streptococcus agalactiae Gp. B Streptococcus anginosus Group 11/29/17 11:25 Leg - Right Bacterial Culture - Preliminary Laboratory Tests 11/24/17 11/25/17 11/26/17 11:42 04:54 08:02 Neutrophils % (Manual) 58 80 H 74 11/27/17 11/28/17 11/29/17 05:02 04:24 04:21 Neutrophils % (Manual) 74 71 64 Phys Exam - Physical Examination Constitutional: NAD HEENT: PERRLA, moist MMs, sclera anicteric, oral pharynx no lesions Neck: no nodes, no JVD, supple, full ROM Respiratory: no wheezing, no rales, no rhonchi, clear to auscultation bilateral Cardiovascular: RRR, no significant murmur, no rub Gastrointestinal: soft, non-tender, no distention, positive bowel sounds Musculoskeletal: no edema, pulses present R leg wound vac and dressing Neurological: non-focal, normal sensation, moves all 4 limbs Dx/Plan (1) Sepsis Code(s): A41.9 - SEPSIS, UNSPECIFIED ORGANISM Status: Acute Qualifiers: Sepsis type: Streptococcus group B Qualified Code(s): A40.1 - Sepsis due to streptococcus, group B (2) Diabetic foot ulcer Code(s): E11.621 - TYPE 2 DIABETES MELLITUS WITH FOOT ULCER; L97.509 - NON- PRESSURE CHRONIC ULCER OTH PRT UNSP FOOT W UNSP SEVERITY Status: Acute Qualifiers: Diabetic foot ulcer location: midfoot Diabetes mellitus type: type 2 Laterality: right Non-pressure ulcer stage: with bone involvement without evidence of necrosis Qualified Code(s): E11.621 - Type 2 diabetes mellitus with foot ulcer; L97.416 - 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 without evidence of necrosis Comment: s/p amp of 5th toe and metatarsal with debribement of dorsal ulcer.Extension into leg with abscess formation.S/P abscess drainage 11/29/17 (3) Bacteremia Code(s): R78.81 - BACTEREMIA Status: Acute Comment: streptococcus agalactiae 03/24 (4) Acute bronchitis Code(s): J20.9 - ACUTE BRONCHITIS, UNSPECIFIED Status: Acute Qualifiers: Bronchitis organism: unspecified organism Qualified Code(s): J20.9 - Acute bronchitis, unspecified Comment: resolving (5) DM type 2 (diabetes mellitus, type 2) Status: Chronic Qualifiers: Diabetes mellitus medical terminologist insulin use: without medical terminologist use Diabetes mellitus complication status: with hyperglycemia Qualified Code(s): E11.65 - Type 2 diabetes mellitus with hyperglycemia Comment: HbA1C of 11.2 (6) Dyslipidemia Code(s): E78.5 - HYPERLIPIDEMIA, UNSPECIFIED Status: Chronic (7) HTN (hypertension) Code(s): I10 - ESSENTIAL (PRIMARY) HYPERTENSION Status: Acute - Plan continue antibiotics, out of bed/ambulate, DVT proph w/SCDs cont empiric ABx. cont IV for next 24-48 hrs -: DC planning.wound care and wound vca pending as pt uninsured -: hemodynamically stable -: BP better controlled w increase of lisinopril -: WBC count still high .monitor * . Review of Systems - Review of Systems Constitutional: negative: fever, chills, sweats, weakness, malaise, other ENT: negative: Ear Pain, Ear Discharge, Nose Pain, Nose Discharge, Nose Congestion, Mouth Pain, Mouth Swelling, Throat Pain, Throat Swelling, Other Respiratory: negative: Cough, Dry, Shortness of Breath, Hemoptysis, SOB with Excertion, Pleuritic Pain, Sputum, Wheezing Cardiovascular: negative: chest pain, palpitations, orthopnea, paroxysmal nocturnal dyspnea, edema, light headedness, other Gastrointestinal: negative: Nausea, Vomiting, Abdominal Pain, Diarrhea, Constipation, Melena, Hematochezia, Other Genitourinary: negative: Dysuria, Frequency, Incontinence, Hematuria, Retention , Other Musculoskeletal: negative: Neck Pain, Shoulder Pain, Arm Pain, Back Pain, Hand Pain, Leg Pain, Foot Pain, Other Skin: negative: Rash, Lesions, Ariel, Bruising, Other Neurological: negative: Weakness, Numbness, Incoordination, Change in Speech, Confusion, Seizures, Other - Medications/Allergies Allergies/Adverse Reactions: Allergies Allergy/AdvReac Type Severity Reaction Status Date / [facility] Allergy Verified 11/24/17 16:30 Medications: Current Medications Acetaminophen (Tylenol) 650 mg PO Q4H PRN PRN Reason: Headache/Fever/Mild Pain (1-3) Acetaminophen (Tylenol) 1,000 mg PO Q6H PRN PRN Reason: Moderate to Severe Pain (6-10) Albuterol/Ipratropium (Duoneb) 3 ml NEB Q6H PRN PRN Reason: SOB &/or Wheezing Benzonatate (Tessalon) 100 mg PO TID [facility] Last Admin: 11/30/17 09:23 Dose: 100 mg Clonidine (Catapres) 0.1 mg PO Q4H PRN PRN Reason: SBP>160 Dextrose/Water (Dextrose 50%) 25 gm SLOW IVP PRN PRN PRN Reason: Hypoglycemia Enoxaparin Sodium (Lovenox) 40 mg SC 0900 [facility] Last Admin: 11/30/17 09:24 Dose: 40 mg Famotidine (Pepcid) 20 mg PO BID [facility] Last Admin: 11/30/17 09:23 Dose: 20 mg Fenofibrate (Tricor) 145 mg PO HS [facility] Last Admin: 11/29/17 20:07 Dose: 145 mg Gabapentin (Neurontin) 300 mg PO TID [facility] Last Admin: 11/30/17 09:23 Dose: 300 mg Glipizide (Glucotrol) 10 mg PO BID [facility] Last Admin: 11/30/17 09:23 Dose: 10 mg Glucagon (Glucagon) 1 mg IM PRN PRN PRN Reason: Hypoglycemia Guaifenesin (Mucinex) 600 mg PO Q12HR [facility] Last Admin: 11/30/17 09:23 Dose: 600 mg Guaifenesin/Dextromethorphan (Robitussin Dm) 15 ml PO Q4H PRN PRN Reason: Cough Dextrose/Water (D5w) 1,000 mls @ 0 mls/hr IV .Q0M PRN PRN Reason: Hypoglycemia Insulin Glargine 15 units/ (Miscellaneous Medication) 0.15 mls @ 0 mls/hr SC BID [facility] Last Admin: 11/30/17 09:23 Dose: 0.15 mls Ceftriaxone Sodium 2 gm/ (Sodium Chloride) 100 mls @ 200 mls/hr IVPB Q24HR [facility] Last Admin: 11/29/17 13:32 Dose: 100 mls Insulin Human Lispro (Humalog) 0 units SC .BEDTIME SLIDING SC PRN PRN Reason: Bedtime Correctional Scale Last Admin: 11/29/17 20:09 Dose: 4 unit Insulin Human Lispro (Humalog) 0 units SC .MODERATE SLIDING SC PRN PRN Reason: Moderate Correctional Scale Last Admin: 11/30/17 13:07 Dose: 2 unit Lisinopril (Zestril) 5 mg PO BID [facility] Last Admin: 11/30/17 09:23 Dose: 5 mg Metronidazole (Flagyl) 500 mg PO TID [facility] Last Admin: 11/30/17 09:22 Dose: 500 mg Polyethylene Glycol (Miralax) 17 gm PO DAILY [facility] Last Admin: 11/30/17 09:24 Dose: Not Given Saccharomyces Boulardii (Florastor) 250 mg PO DAILY [facility] Last Admin: 11/30/17 09:23 Dose: 250 mg Senna/Docusate Sodium (Senokot S) 2 tab PO BID PRN PRN Reason: Constipation Sodium Chloride (Flush - Normal Saline) 10 ml IVF Q12HR [facility] Last Admin: 11/30/17 09:24 Dose: 10 ml Sodium Chloride (Flush - Normal Saline) 10 ml IVF PRN PRN PRN Reason: Saline Flush Testosterone Cypionate (Depo-Testosterone) 100 mg IM Fr@0900 KATHLEEN Tramadol HCl (Ultram) 50 mg PO Q6H PRN PRN Reason: Mild-Moderate Pain (1-5) Last Admin: 11/29/17 07:09 Dose: 50 mg Tramadol HCl (Ultram) 100 mg PO Q6H PRN PRN Reason: Moderate to Severe Pain (6-10) Last Admin: 11/29/17 13:26 Dose: 100 mg
--- NOTE | 2017-11-30 14:43 | PQF ---
DATE: 11-30-17 ATTN: DR. LYDIA BOYLE Please exercise your independent, professional judgment in responding to the clarification form. Clinical indicators are provided on the bottom of this form for your review Please check appropriate box(s): [ X ] Acute Renal Failure (ARF) / Acute Kidney Injury (HEATHER) [ ] Abnormal Lab Values [ ] Other diagnosis [ ] Unable to determine In addition, please specify: Present on Admission (POA): [X ] Yes [ ] No [ ] Unable to determine National Kidney Foundation Guidelines for CKD Staging Stage I Kidney damage with normal or increased GFR GFR > 90 Stage II Kidney damage with mildly decreased GFR GFR 60 -89 Stage III Kidney damage with moderately decreased GFR GFR 30- 59 Stage IV Kidney damage with severely decreased GFR GFR 16- 29 Stage V Kidney failure GFR<15 ESRD End Stage Renal Disease On dialysis Acute Renal Failure/Acute Kidney Failure defined as: Increases in SCr by (>) 0.3 mg/dl within 48 hours OR- Increases in SCr by (>) 1.5 times baseline, known or presumed to have occurred within the prior 7 days OR- Urine volume < 0.5 ml/kg/hour for 6 hours (KDIGO supplement 2012 for RIFLE/EYAD criteria) For continuity of documentation, please document condition throughout progress notes and discharge summary. Thank You. CLINICAL INDICATORS - SIGNS / SYMPTOMS / LABS GFR: 11-24-17: 57 11-25-17: 89 11-26-17: GREATER THAN 90 CREATININE: 11-24-17: 1.33 11-25-17: 0.91 11-26-17: 0.86 11-27-17: 0.78 BUN: 11-24-17: 21 11-25-17: 23 11-29-17: 8 RISK FACTORS: ER: HX OF DM 2, HTN, SMOKELESS TOBACCO, CHILLS, PRODUCTIVE COUGH, VOMITING, DIARRHEA WHICH IS REPORTED AFTER PT BEGAN COURSE OF AZITHROMYCIN TREATMENTS: ER: NS 1L INFUSION X 3 (This form is maintained as a part of the permanent medical record) 2014 [employer], [employer]. All Rights Reserved PARI [email or web address] Office: [phone] [facility]
[2017-11-30] MEDS: cefTRIAXone\\ROCEPHIN 2 GM in Sodium Chloride 0.9% 100 ML IVPB SCH (15:08)
[2017-11-30] MEDS: Fenofibrate Nanocrystallized 145 MG TAB PO SCH (20:19)
[2017-12-01] MEDS: Benzonatate 100 MG CAP PO SCH ×3 (08:50→21:44)
[2017-12-01] MEDS: Saccharomyces boulardii 250 MG CAP PO SCH (08:50)
[2017-12-01] MEDS: guaiFENesin ER 600 MG TAB PO SCH ×2 (08:50→21:44)
[2017-12-01] MEDS: metroNIDAZOLE 500 MG TAB PO SCH ×3 (08:50→21:43)
[2017-12-01] MEDS: Gabapentin 300 MG CAP PO SCH ×3 (08:50→21:44)
[2017-12-01] MEDS: glipiZIDE 10 MG TAB PO SCH ×2 (08:50→21:44)
[2017-12-01] MEDS: Lisinopril 5 MG TAB PO SCH ×2 (08:50→21:44)
[2017-12-01] MEDS: Insulin Glargine 15 UNITS in Pre-Filled Syringe 1 EACH SC SCH ×2 (09:30→21:44)
[2017-12-01] MEDS: Enoxaparin Sodium 40 MG/0.4 ML SYRINGE SC SCH (11:20)
[2017-12-01] MEDS: Famotidine 20 MG TAB PO SCH ×2 (11:20→21:43)
[2017-12-01] MEDS: Polyethylene Glycol 3350 17 GM Packet PO SCH (11:22)
[2017-12-01 12:45] LABS: Anion Gap 11 mmol/L (10-20); BUN (Urea Nitrogen) 12 mg/dL (8.9-20.6); Calc. Creatinine Clearance 158 mL/min (70-130); Calcium 8.4 mg/dL (7.8-10.44); Carbon Dioxide 27 mmol/L (22-29); Chloride 103 mmol/L (98-107); Estimated GFR-MDRD Greater than 90; Glucose 147 mg/dL (70-105); Potassium 4.5 mmol/L (3.5-5.1); Sodium 136 mmol/L (136-145)
[2017-12-01] MEDS: cefTRIAXone\\ROCEPHIN 2 GM in Sodium Chloride 0.9% 100 ML IVPB SCH (14:30)
--- NOTE | 2017-12-01 14:41 | PDOC.PN ---
- Subjective Encounter Start Date: 12/01/17 Encounter Start Time: 13:12 Subjective: feels better.no fever/chills.no N/V/D. - Objective Resuscitation Status: Resuscitation Status FULL:Full Resuscitation MAR Reviewed: Yes Vital Signs & Weight: Vital Signs (12 hours) Temp Pulse Resp BP BP BP Pulse Ox 12/01/17 12:00 98.6 F 94 16 152/93 H 96 12/01/17 08:50 95 156/90 H 12/01/17 08:00 98.3 F 96 18 154/98 H 95 Weight Admit Weight 226 lb 1.6 oz Weight 226 lb 1.6 oz I&O: 11/30/17 12/01/17 12/02/17 06:59 06:59 06:59 Intake Total 840 1760 Output Total 75 Balance 765 1760 Result Diagrams: 11/30/17 07:08 12/01/17 03:50 Additional Labs: Accuchecks 11/30/17 11/30/17 19:59 15:59 POC Glucose 222 H 160 H Microbiology 11/24/17 20:03 Toe - Abscess Bacterial Culture - Final 11/24/17 20:03 Toe - Abscess Anaerobic Culture - Final Streptococcus agalactiae Gp. B Streptococcus anginosus Group Anaerobic cocci Anaerobic Gram Negative [place] 11/24/17 11:55 Urine voided Urine Culture - Final Beta-hemolytic Streptococcus 11/24/17 11:44 Venous blood - Left Arm Blood Culture - Final Streptococcus agalactiae Gp. B Streptococcus anginosus Group 11/24/17 11:42 Venous blood - Right Arm Blood Culture - Final Streptococcus agalactiae Gp. B Streptococcus anginosus Group 11/29/17 11:25 Leg - Right Bacterial Culture - Preliminary Laboratory Tests 11/24/17 11/25/17 11/26/17 11:42 04:54 08:02 WBC 23.3 H 19.7 H 29.4 H 11/27/17 11/28/17 11/29/17 05:02 04:24 04:21 WBC 21.5 H 21.2 H 22.3 H 11/30/17 07:08 WBC 22.9 H Phys Exam - Physical Examination Constitutional: NAD HEENT: PERRLA, moist MMs, sclera anicteric, oral pharynx no lesions Neck: no nodes, no JVD, supple, full ROM Respiratory: no wheezing, no rales, no rhonchi, clear to auscultation bilateral Cardiovascular: RRR, no significant murmur, no rub Gastrointestinal: soft, non-tender, no distention, positive bowel sounds Musculoskeletal: no edema, pulses present Neurological: non-focal, normal sensation, moves all 4 limbs Psychiatric: normal affect, A&O x 3 Skin: no rash Dx/Plan (1) Sepsis Code(s): A41.9 - SEPSIS, UNSPECIFIED ORGANISM Status: Acute Qualifiers: Sepsis type: Streptococcus group B Qualified Code(s): A40.1 - Sepsis due to streptococcus, group B (2) Diabetic foot ulcer Code(s): E11.621 - TYPE 2 DIABETES MELLITUS WITH FOOT ULCER; L97.509 - NON- PRESSURE CHRONIC ULCER OTH PRT UNSP FOOT W UNSP SEVERITY Status: Acute Qualifiers: Diabetic foot ulcer location: midfoot Diabetes mellitus type: type 2 Laterality: right Non-pressure ulcer stage: with bone involvement without evidence of necrosis Qualified Code(s): E11.621 - Type 2 diabetes mellitus with foot ulcer; L97.416 - 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 without evidence of necrosis Comment: s/p amp of 5th toe and metatarsal with debribement of dorsal ulcer.Extension into leg with abscess formation.S/P abscess drainage 11/29/17 (3) Bacteremia Code(s): R78.81 - BACTEREMIA Status: Acute Comment: streptococcus agalactiae 2/ (4) Acute bronchitis Code(s): J20.9 - ACUTE BRONCHITIS, UNSPECIFIED Status: Acute Qualifiers: Bronchitis organism: unspecified organism Qualified Code(s): J20.9 - Acute bronchitis, unspecified Comment: resolving (5) DM type 2 (diabetes mellitus, type 2) Status: Chronic Qualifiers: Diabetes mellitus fpc insulin use: without manager long term care use Diabetes mellitus complication status: with hyperglycemia Qualified Code(s): E11.65 - Type 2 diabetes mellitus with hyperglycemia Comment: HbA1C of 11.2 (6) Dyslipidemia Code(s): E78.5 - HYPERLIPIDEMIA, UNSPECIFIED Status: Chronic (7) HTN (hypertension) Code(s): I10 - ESSENTIAL (PRIMARY) HYPERTENSION Status: Acute - Plan continue antibiotics, out of bed/ambulate, DVT proph w/SCDs awaiting OP wound vac set up.cont emepirc ABx -: clinically better. GS and ID [email or web address] input -: BP controlled. cont lisiniopril -: DC home when wound vac arranged * . Review of Systems - Review of Systems Constitutional: negative: fever, chills, sweats, weakness, malaise, other ENT: negative: Ear Pain, Ear Discharge, Nose Pain, Nose Discharge, Nose Congestion, Mouth Pain, Mouth Swelling, Throat Pain, Throat Swelling, Other Respiratory: negative: Cough, Dry, Shortness of Breath, Hemoptysis, SOB with Excertion, Pleuritic Pain, Sputum, Wheezing Cardiovascular: negative: chest pain, palpitations, orthopnea, paroxysmal nocturnal dyspnea, edema, light headedness, other Gastrointestinal: negative: Nausea, Vomiting, Abdominal Pain, Diarrhea, Constipation, Melena, Hematochezia, Other Genitourinary: negative: Dysuria, Frequency, Incontinence, Hematuria, Retention , Other Musculoskeletal: negative: Neck Pain, Shoulder Pain, Arm Pain, Back Pain, Hand Pain, Leg Pain, Foot Pain, Other Skin: negative: Rash, Lesions, Ariel, Bruising, Other Neurological: negative: Weakness, Numbness, Incoordination, Change in Speech, Confusion, Seizures, Other - Medications/Allergies Allergies/Adverse Reactions: Allergies Allergy/AdvReac Type Severity Reaction Status Date / Time [facility] Allergy Verified 11/24/17 16:30 Medications: Current Medications Acetaminophen (Tylenol) 650 mg PO Q4H PRN PRN Reason: Headache/Fever/Mild Pain (1-3) Acetaminophen (Tylenol) 1,000 mg PO Q6H PRN PRN Reason: Moderate to Severe Pain (6-10) Albuterol/Ipratropium (Duoneb) 3 ml NEB Q6H PRN PRN Reason: SOB &/or Wheezing Benzonatate (Tessalon) 100 mg PO TID [facility] Last Admin: 12/01/17 08:50 Dose: 100 mg Clonidine (Catapres) 0.1 mg PO Q4H PRN PRN Reason: SBP>160 Dextrose/Water (Dextrose 50%) 25 gm SLOW IVP PRN PRN PRN Reason: Hypoglycemia Enoxaparin Sodium (Lovenox) 40 mg SC 0900 [facility] Last Admin: 12/01/17 11:20 Dose: Not Given Famotidine (Pepcid) 20 mg PO BID [facility] Last Admin: 12/01/17 11:20 Dose: Not Given Fenofibrate (Tricor) 145 mg PO HS [facility] Last Admin: 11/30/17 20:19 Dose: 145 mg Gabapentin (Neurontin) 300 mg PO TID [facility] Last Admin: 12/01/17 08:50 Dose: 300 mg Glipizide (Glucotrol) 10 mg PO BID [facility] Last Admin: 12/01/17 08:50 Dose: 10 mg Glucagon (Glucagon) 1 mg IM PRN PRN PRN Reason: Hypoglycemia Guaifenesin (Mucinex) 600 mg PO Q12HR [facility] Last Admin: 12/01/17 08:50 Dose: 600 mg Guaifenesin/Dextromethorphan (Robitussin Dm) 15 ml PO Q4H PRN PRN Reason: Cough Dextrose/Water (D5w) 1,000 mls @ 0 mls/hr IV .Q0M PRN PRN Reason: Hypoglycemia Insulin Glargine 15 units/ (Miscellaneous Medication) 0.15 mls @ 0 mls/hr SC BID [facility] Last Admin: 12/01/17 09:30 Dose: 0.15 mls Ceftriaxone Sodium 2 gm/ (Sodium Chloride) 100 mls @ 200 mls/hr IVPB Q24HR [facility] Last Admin: 11/30/17 15:08 Dose: 100 mls Insulin Human Lispro (Humalog) 0 units SC .BEDTIME SLIDING SC PRN PRN Reason: Bedtime Correctional Scale Last Admin: 11/29/17 20:09 Dose: 4 unit Insulin Human Lispro (Humalog) 0 units SC .MODERATE SLIDING SC PRN PRN Reason: Moderate Correctional Scale Last Admin: 11/30/17 17:18 Dose: 2 unit Lisinopril (Zestril) 5 mg PO BID [facility] Last Admin: 12/01/17 08:50 Dose: 5 mg Metronidazole (Flagyl) 500 mg PO TID [facility] Last Admin: 12/01/17 08:50 Dose: 500 mg Polyethylene Glycol (Miralax) 17 gm PO DAILY [facility] Last Admin: 12/01/17 11:22 Dose: Not Given Saccharomyces Boulardii (Florastor) 250 mg PO DAILY [facility] Last Admin: 12/01/17 08:50 Dose: 250 mg Senna/Docusate Sodium (Senokot S) 2 tab PO BID PRN PRN Reason: Constipation Sodium Chloride (Flush - Normal Saline) 10 ml IVF Q12HR [facility] Last Admin: 12/01/17 08:50 Dose: 10 ml Sodium Chloride (Flush - Normal Saline) 10 ml IVF PRN PRN PRN Reason: Saline Flush Testosterone Cypionate (Depo-Testosterone) 100 mg IM Fr@0900 [facility] Last Admin: 12/01/17 08:50 Dose: Not Given Tramadol HCl (Ultram) 50 mg PO Q6H PRN PRN Reason: Mild-Moderate Pain (1-5) Last Admin: 11/29/17 07:09 Dose: 50 mg Tramadol HCl (Ultram) 100 mg PO Q6H PRN PRN Reason: Moderate to Severe Pain (6-10) Last Admin: 11/29/17 13:26 Dose: 100 mg
[2017-12-01] MEDS: HumaLOG 300 UNITS/3 ML VIAL SC PRN (16:58)
[2017-12-01 18:26] LABS: #Basophils 0.1 thou/uL (0.0-0.2); #Eosinphils 0.6 thou/uL (0.0-0.7); #Lymphocytes 4.1 thou/uL (1.20-3.40); #Monocytes 1.9 thou/uL (0.11-0.59); #Neutrophils 9.5 thou/uL (1.40-6.50); %Basophils 0.6 % (0.0-1.0); %Eosinophils 3.8 % (0.0-10.0); %Lymphocytes 25.6 % (21.0-51.0); %Monocytes 11.4 % (0.0-10.0); %Neutrophils 58.6 % (42.0-75.0); Mean Corpuscular HGB CONC 30.7 g/dL (32.0-36.0); Mean Corpuscular Hemoglobin 26.8 pg (27.0-31.0); Mean Corpuscular Volume 87.4 fL (78.0-98.0); Mean Platelet Volume 9.2 fL (7.4-10.4); Platelet Count 383 thou/uL (130-400); RBC Distribution Width 13.4 % (11.5-14.5); Red Blood Cell (RBC) Count 4.46 mill/uL (4.70-6.10); White Blood Cell (WBC) Count 16.1 thou/uL (4.8-10.8)
[2017-12-01] MEDS: Fenofibrate Nanocrystallized 145 MG TAB PO SCH (21:43)
--- NOTE | 2017-12-01 21:58 | PRG ---
DATE OF SERVICE: 12/01/2017 SUBJECTIVE: Mr. Jovel is doing better today. OBJECTIVE: VITAL SIGNS: Temperature degrees, 94, 152/93. ASSESSMENT AND PLAN: Cultures from the leg wound are pending. Many gram positive cocci . Eval uation of his leg wound reveals that the foot looks much better. The leg looks much better. Celluli tis is resolved. The wounds are granulating. Wound VAC is changed. He can wash the wound with soap and water. From my standpoint, the patient can be discharged home on oral antibiotics. Duration ap propriate for positive blood cultures. He can follow up in my office in 2-3 weeks. Home VAC to be d one at home with home health nursing. Dr. Baeza has seen the patient and recommends Keflex and Flagy l once discharged home.
[2017-12-02 05:11] LABS: #Basophils 0.1 thou/uL (0.0-0.2); #Eosinphils 0.5 thou/uL (0.0-0.7); #Lymphocytes 3.6 thou/uL (1.20-3.40); #Monocytes 1.7 thou/uL (0.11-0.59); #Neutrophils 7.4 thou/uL (1.40-6.50); %Basophils 0.7 % (0.0-1.0); %Eosinophils 4.1 % (0.0-10.0); %Lymphocytes 27.2 % (21.0-51.0); %Monocytes 12.6 % (0.0-10.0); %Neutrophils 55.4 % (42.0-75.0); Hemoglobin 12.4 g/dL (14.0-18.0); Mean Platelet Volume 8.6 fL (7.4-10.4); Platelet Count 365 thou/uL (130-400); RBC Distribution Width 13.1 % (11.5-14.5); White Blood Cell (WBC) Count 13.3 thou/uL (4.8-10.8)
[2017-12-02 05:31] LABS: Anion Gap 10 mmol/L (10-20); BUN (Urea Nitrogen) 10 mg/dL (8.9-20.6); Calc. Creatinine Clearance 175 mL/min (70-130); Calcium 8.5 mg/dL (7.8-10.44); Carbon Dioxide 25 mmol/L (22-29); Chloride 104 mmol/L (98-107); Estimated GFR-MDRD Greater than 90; Glucose 132 mg/dL (70-105); Potassium 4.2 mmol/L (3.5-5.1); Sodium 135 mmol/L (136-145)
[2017-12-02] MEDS: Insulin Glargine 15 UNITS in Pre-Filled Syringe 1 EACH SC SCH ×2 (08:26→20:27)
[2017-12-02] MEDS: Enoxaparin Sodium 40 MG/0.4 ML SYRINGE SC SCH (08:27)
[2017-12-02] MEDS: Lisinopril 5 MG TAB PO SCH ×2 (08:27→20:26)
[2017-12-02] MEDS: Benzonatate 100 MG CAP PO SCH ×3 (08:27→20:26)
[2017-12-02] MEDS: Gabapentin 300 MG CAP PO SCH ×3 (08:28→20:26)
[2017-12-02] MEDS: glipiZIDE 10 MG TAB PO SCH ×2 (08:28→20:27)
[2017-12-02] MEDS: Famotidine 20 MG TAB PO SCH ×2 (08:28→20:27)
[2017-12-02] MEDS: Polyethylene Glycol 3350 17 GM Packet PO SCH (08:28)
[2017-12-02] MEDS: metroNIDAZOLE 500 MG TAB PO SCH ×3 (08:28→20:25)
[2017-12-02] MEDS: guaiFENesin ER 600 MG TAB PO SCH ×2 (08:28→20:25)
--- NOTE | 2017-12-02 14:56 | PDOC.PN ---
- Subjective Encounter Start Date: 12/02/17 Encounter Start Time: 14:55 Subjective: feels good. no new complain or overnight event - Objective Resuscitation Status: Resuscitation Status FULL:Full Resuscitation MAR Reviewed: Yes Vital Signs & Weight: Vital Signs (12 hours) Temp Pulse Resp BP BP Pulse Ox 12/02/17 08:27 90 145/96 H 12/02/17 07:41 98.6 F 90 16 145/96 H 96 Weight Admit Weight 226 lb 1.6 oz Weight 226 lb 1.6 oz I&O: 12/01/17 12/02/17 12/03/17 06:59 06:59 06:59 Intake Total 1760 Balance 1760 Result Diagrams: 12/02/17 04:39 12/02/17 04:39 Additional Labs: Accuchecks 12/02/17 12/02/17 12/01/17 11:20 05:01 20:16 POC Glucose 180 H 130 H 195 H 12/01/17 12/01/17 16:22 11:29 POC Glucose 257 H 139 H Microbiology 11/24/17 20:03 Toe - Abscess Bacterial Culture - Final 11/24/17 20:03 Toe - Abscess Anaerobic Culture - Final Streptococcus agalactiae Gp. B Streptococcus anginosus Group Anaerobic cocci Anaerobic Gram Negative [place] 11/24/17 11:55 Urine voided Urine Culture - Final Beta-hemolytic Streptococcus 11/24/17 11:44 Venous blood - Left Arm Blood Culture - Final Streptococcus agalactiae Gp. B Streptococcus anginosus Group 11/24/17 11:42 Venous blood - Right Arm Blood Culture - Final Streptococcus agalactiae Gp. B Streptococcus anginosus Group 11/29/17 11:25 Leg - Right Bacterial Culture - Preliminary 11/29/17 11:25 Leg - Right Anaerobic Culture - Preliminary NO ANAEROBES ISOLATED IN 3 DAYS Phys Exam - Physical Examination Constitutional: NAD HEENT: PERRLA, moist MMs, sclera anicteric, oral pharynx no lesions Neck: no nodes, no JVD, supple, full ROM Respiratory: no wheezing, no rales, no rhonchi, clear to auscultation bilateral Cardiovascular: RRR, no significant murmur, no rub Gastrointestinal: soft, non-tender, no distention, positive bowel sounds Musculoskeletal: no edema, pulses present Neurological: non-focal, normal sensation, moves all 4 limbs Psychiatric: normal affect, A&O x 3 Skin: no rash Dx/Plan (1) Sepsis Code(s): A41.9 - SEPSIS, UNSPECIFIED ORGANISM Status: Acute Qualifiers: Sepsis type: Streptococcus group B Qualified Code(s): A40.1 - Sepsis due to streptococcus, group B (2) Diabetic foot ulcer Code(s): E11.621 - TYPE 2 DIABETES MELLITUS WITH FOOT ULCER; L97.509 - NON- PRESSURE CHRONIC ULCER OTH PRT UNSP FOOT W UNSP SEVERITY Status: Acute Qualifiers: Diabetic foot ulcer location: midfoot Diabetes mellitus type: type 2 Laterality: right Non-pressure ulcer stage: with bone involvement without evidence of necrosis Qualified Code(s): E11.621 - Type 2 diabetes mellitus with foot ulcer; L97.416 - 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 without evidence of necrosis Comment: s/p amp of 5th toe and metatarsal with debribement of dorsal ulcer.Extension into leg with abscess formation.S/P abscess drainage 11/29/17 (3) Bacteremia Code(s): R78.81 - BACTEREMIA Status: Acute Comment: streptococcus agalactiae 03/24 (4) Acute bronchitis Code(s): J20.9 - ACUTE BRONCHITIS, UNSPECIFIED Status: Acute Qualifiers: Bronchitis organism: unspecified organism Qualified Code(s): J20.9 - Acute bronchitis, unspecified Comment: resolving (5) DM type 2 (diabetes mellitus, type 2) Status: Chronic Qualifiers: Diabetes mellitus exterminator termite insulin use: without exterminator termite use Diabetes mellitus complication status: with hyperglycemia Qualified Code(s): E11.65 - Type 2 diabetes mellitus with hyperglycemia Comment: HbA1C of 11.2 (6) Dyslipidemia Code(s): E78.5 - HYPERLIPIDEMIA, UNSPECIFIED Status: Chronic (7) HTN (hypertension) Code(s): I10 - ESSENTIAL (PRIMARY) HYPERTENSION Status: Acute - Plan continue antibiotics, out of bed/ambulate, DVT proph w/SCDs awaiting outpt wound Vac arrangement ,O/W ready for DC -: cont IV Abx and wound care in house -: change to Keflex and flagyl on DC -: Avoidable day #1 -: WBC trending down to normal. recheck in am if still here * . Review of Systems - Review of Systems Constitutional: negative: fever, chills, sweats, malaise, other Eyes: negative: Pain, Vision Change, Conjunctivae Inflammation, Eyelid Inflammation, Redness, Other ENT: negative: Ear Pain, Ear Discharge, Nose Pain, Nose Discharge, Nose Congestion, Mouth Pain, Mouth Swelling, Throat Pain, Throat Swelling, Other Respiratory: negative: Cough, Dry, Shortness of Breath, Hemoptysis, SOB with Excertion, Pleuritic Pain, Sputum, Wheezing Cardiovascular: negative: chest pain, palpitations, orthopnea, paroxysmal nocturnal dyspnea, edema, light headedness, other Gastrointestinal: negative: Nausea, Vomiting, Abdominal Pain, Diarrhea, Constipation, Melena, Hematochezia, Other Genitourinary: negative: Dysuria, Frequency, Incontinence, Hematuria, Retention , Other Musculoskeletal: negative: Neck Pain, Shoulder Pain, Arm Pain, Back Pain, Hand Pain, Leg Pain, Foot Pain, Other Skin: negative: Rash, Lesions, Ariel, Bruising, Other Neurological: negative: Weakness, Numbness, Incoordination, Change in Speech, Confusion, Seizures, Other - Medications/Allergies Allergies/Adverse Reactions: Allergies Allergy/AdvReac Type Severity Reaction Status Date / Time [facility] [place] Allergy Verified 11/24/17 16:30 Medications: Current Medications Acetaminophen (Tylenol) 650 mg PO Q4H PRN PRN Reason: Headache/Fever/Mild Pain (1-3) Acetaminophen (Tylenol) 1,000 mg PO Q6H PRN PRN Reason: Moderate to Severe Pain (6-10) Albuterol/Ipratropium (Duoneb) 3 ml NEB Q6H PRN PRN Reason: SOB &/or Wheezing Benzonatate (Tessalon) 100 mg PO TID [facility] Last Admin: 12/02/17 08:27 Dose: 100 mg Clonidine (Catapres) 0.1 mg PO Q4H PRN PRN Reason: SBP>160 Dextrose/Water (Dextrose 50%) 25 gm SLOW IVP PRN PRN PRN Reason: Hypoglycemia Enoxaparin Sodium (Lovenox) 40 mg SC 0900 [facility] Last Admin: 12/02/17 08:27 Dose: 40 mg Famotidine (Pepcid) 20 mg PO BID [facility] Last Admin: 12/02/17 08:28 Dose: 20 mg Fenofibrate (Tricor) 145 mg PO HS [facility] Last Admin: 12/01/17 21:43 Dose: 145 mg Gabapentin (Neurontin) 300 mg PO TID [facility] Last Admin: 12/02/17 08:28 Dose: 300 mg Glipizide (Glucotrol) 10 mg PO BID [facility] Last Admin: 12/02/17 08:28 Dose: 10 mg Glucagon (Glucagon) 1 mg IM PRN PRN PRN Reason: Hypoglycemia Guaifenesin (Mucinex) 600 mg PO Q12HR [facility] Last Admin: 12/02/17 08:28 Dose: 600 mg Guaifenesin/Dextromethorphan (Robitussin Dm) 15 ml PO Q4H PRN PRN Reason: Cough Dextrose/Water (D5w) 1,000 mls @ 0 mls/hr IV .Q0M PRN PRN Reason: Hypoglycemia Insulin Glargine 15 units/ (Miscellaneous Medication) 0.15 mls @ 0 mls/hr SC BID [facility] Last Admin: 12/02/17 08:26 Dose: 0.15 mls Ceftriaxone Sodium 2 gm/ (Sodium Chloride) 100 mls @ 200 mls/hr IVPB Q24HR [facility] Last Admin: 12/01/17 14:30 Dose: 100 mls Insulin Human Lispro (Humalog) 0 units SC .BEDTIME SLIDING SC PRN PRN Reason: Bedtime Correctional Scale Last Admin: 12/01/17 16:58 Dose: 3 unit Insulin Human Lispro (Humalog) 0 units SC .MODERATE SLIDING SC PRN PRN Reason: Moderate Correctional Scale Last Admin: 11/30/17 17:18 Dose: 2 unit Lisinopril (Zestril) 5 mg PO BID [facility] Last Admin: 12/02/17 08:27 Dose: 5 mg Metronidazole (Flagyl) 500 mg PO TID [facility] Last Admin: 12/02/17 08:28 Dose: 500 mg Polyethylene Glycol (Miralax) 17 gm PO DAILY [facility] Last Admin: 12/02/17 08:28 Dose: Not Given Saccharomyces Boulardii (Florastor) 250 mg PO DAILY [facility] Last Admin: 12/01/17 08:50 Dose: 250 mg Senna/Docusate Sodium (Senokot S) 2 tab PO BID PRN PRN Reason: Constipation Sodium Chloride (Flush - Normal Saline) 10 ml IVF Q12HR [facility] Last Admin: 12/02/17 08:29 Dose: 10 ml Sodium Chloride (Flush - Normal Saline) 10 ml IVF PRN PRN PRN Reason: Saline Flush Testosterone Cypionate (Depo-Testosterone) 100 mg IM Fr@0900 [facility] Last Admin: 12/01/17 08:50 Dose: Not Given Tramadol HCl (Ultram) 50 mg PO Q6H PRN PRN Reason: Mild-Moderate Pain (1-5) Last Admin: 11/29/17 07:09 Dose: 50 mg Tramadol HCl (Ultram) 100 mg PO Q6H PRN PRN Reason: Moderate to Severe Pain (6-10) Last Admin: 11/29/17 13:26 Dose: 100 mg
[2017-12-02] MEDS: Saccharomyces boulardii 250 MG CAP PO SCH (15:58)
[2017-12-02] MEDS: cefTRIAXone\\ROCEPHIN 2 GM in Sodium Chloride 0.9% 100 ML IVPB SCH (15:59)
[2017-12-02] MEDS: Fenofibrate Nanocrystallized 145 MG TAB PO SCH (20:26)
[2017-12-03 04:51] LABS: #Basophils 0.1 thou/uL (0.0-0.2); #Eosinphils 0.2 thou/uL (0.0-0.7); #Lymphocytes 3.7 thou/uL (1.20-3.40); #Monocytes 1.4 thou/uL (0.11-0.59); #Neutrophils 6.4 thou/uL (1.40-6.50); %Basophils 0.8 % (0.0-1.0); %Neutrophils 54.2 % (42.0-75.0); Hemoglobin 12.5 g/dL (14.0-18.0); Mean Corpuscular HGB CONC 31.2 g/dL (32.0-36.0); Mean Corpuscular Volume 86.8 fL (78.0-98.0); Mean Platelet Volume 8.6 fL (7.4-10.4); Platelet Count 353 thou/uL (130-400); RBC Distribution Width 13.2 % (11.5-14.5); Red Blood Cell (RBC) Count 4.62 mill/uL (4.70-6.10); White Blood Cell (WBC) Count 11.8 thou/uL (4.8-10.8)
[2017-12-03] MEDS: Insulin Glargine 15 UNITS in Pre-Filled Syringe 1 EACH SC SCH ×2 (09:00→21:39)
[2017-12-03] MEDS: guaiFENesin ER 600 MG TAB PO SCH ×2 (09:01→21:37)
[2017-12-03] MEDS: Enoxaparin Sodium 40 MG/0.4 ML SYRINGE SC SCH (09:01)
[2017-12-03] MEDS: glipiZIDE 10 MG TAB PO SCH ×2 (09:01→21:37)
[2017-12-03] MEDS: Saccharomyces boulardii 250 MG CAP PO SCH (09:01)
[2017-12-03] MEDS: Gabapentin 300 MG CAP PO SCH ×3 (09:02→21:38)
[2017-12-03] MEDS: Polyethylene Glycol 3350 17 GM Packet PO SCH (09:02)
[2017-12-03] MEDS: Famotidine 20 MG TAB PO SCH ×2 (09:02→21:37)
[2017-12-03] MEDS: Lisinopril 5 MG TAB PO SCH ×2 (09:02→21:37)
[2017-12-03] MEDS: metroNIDAZOLE 500 MG TAB PO SCH ×3 (09:02→21:37)
[2017-12-03] MEDS: Benzonatate 100 MG CAP PO SCH ×3 (09:59→21:38)
--- NOTE | 2017-12-03 11:19 | PDOC.PN ---
- Subjective Encounter Start Date: 12/03/17 Encounter Start Time: 11:18 Subjective: no new complaints. feels well. -: wants to go home. care discussed w at bedside -: no ON events - Objective Resuscitation Status: Resuscitation Status FULL:Full Resuscitation MAR Reviewed: Yes Vital Signs & Weight: Vital Signs (12 hours) Temp Pulse Resp BP BP Pulse Ox 12/03/17 09:02 95 146/95 H 12/03/17 07:34 98.3 F 95 16 146/95 H 97 Weight Admit Weight 226 lb 1.6 oz Weight 226 lb 1.6 oz I&O: 12/02/17 12/03/17 12/04/17 06:59 06:59 06:59 Intake Total 300 Balance 300 Result Diagrams: 12/03/17 03:51 12/02/17 04:39 Additional Labs: Accuchecks 12/03/17 12/02/17 12/02/17 04:41 20:39 15:47 POC Glucose 175 H 249 H 222 H 12/02/17 11:20 POC Glucose 180 H Microbiology 11/24/17 20:03 Toe - Abscess Bacterial Culture - Final 11/24/17 20:03 Toe - Abscess Anaerobic Culture - Final Streptococcus agalactiae Gp. B Streptococcus anginosus Group Anaerobic cocci Anaerobic Gram Negative [place] 11/24/17 11:55 Urine voided Urine Culture - Final Beta-hemolytic Streptococcus 11/24/17 11:44 Venous blood - Left Arm Blood Culture - Final Streptococcus agalactiae Gp. B Streptococcus anginosus Group 11/24/17 11:42 Venous blood - Right Arm Blood Culture - Final Streptococcus agalactiae Gp. B Streptococcus anginosus Group 11/29/17 11:25 Leg - Right Bacterial Culture - Preliminary 11/29/17 11:25 Leg - Right Anaerobic Culture - Preliminary NO ANAEROBES ISOLATED IN 4 DAYS Phys Exam - Physical Examination Constitutional: NAD HEENT: PERRLA, moist MMs, sclera anicteric, oral pharynx no lesions Neck: no nodes, no JVD, supple, full ROM Respiratory: no wheezing, no rales, no rhonchi, clear to auscultation bilateral Cardiovascular: RRR, no significant murmur Gastrointestinal: soft, non-tender, no distention, positive bowel sounds Musculoskeletal: no edema, pulses present Neurological: non-focal, normal sensation, moves all 4 limbs Psychiatric: normal affect, A&O x 3 Skin: no rash Dx/Plan (1) Sepsis Code(s): A41.9 - SEPSIS, UNSPECIFIED ORGANISM Status: Acute Qualifiers: Sepsis type: Streptococcus group B Qualified Code(s): A40.1 - Sepsis due to streptococcus, group B (2) Diabetic foot ulcer Code(s): E11.621 - TYPE 2 DIABETES MELLITUS WITH FOOT ULCER; L97.509 - NON- PRESSURE CHRONIC ULCER OTH PRT UNSP FOOT W UNSP SEVERITY Status: Acute Qualifiers: Diabetic foot ulcer location: midfoot Diabetes mellitus type: type 2 Laterality: right Non-pressure ulcer stage: with bone involvement without evidence of necrosis Qualified Code(s): E11.621 - Type 2 diabetes mellitus with foot ulcer; L97.416 - 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 without evidence of necrosis Comment: s/p amp of 5th toe and metatarsal with debribement of dorsal ulcer.Extension into leg with abscess formation.S/P abscess drainage 11/29/17 (3) Bacteremia Code(s): R78.81 - BACTEREMIA Status: Acute Comment: streptococcus agalactiae 03/24 (4) Acute bronchitis Code(s): J20.9 - ACUTE BRONCHITIS, UNSPECIFIED Status: Acute Qualifiers: Bronchitis organism: unspecified organism Qualified Code(s): J20.9 - Acute bronchitis, unspecified Comment: resolving (5) DM type 2 (diabetes mellitus, type 2) Status: Chronic Qualifiers: Diabetes mellitus intermediate insulin use: without long term care pharmacist use Diabetes mellitus complication status: with hyperglycemia Qualified Code(s): E11.65 - Type 2 diabetes mellitus with hyperglycemia Comment: HbA1C of 11.2 (6) Dyslipidemia Code(s): E78.5 - HYPERLIPIDEMIA, UNSPECIFIED Status: Chronic (7) HTN (hypertension) Code(s): I10 - ESSENTIAL (PRIMARY) HYPERTENSION Status: Acute - Plan plan discussed w/ family, out of bed/ambulate, DVT proph w/SCDs cont empiric ABx. -: awaiting home wound Vac set up.DC home when done -: OP wound care clinic post DC -: Keflex & flagyl on DC per ID -: HD stable * . Review of Systems - Review of Systems Constitutional: negative: fever, chills, sweats, weakness, malaise, other ENT: negative: Ear Pain, Ear Discharge, Nose Pain, Nose Discharge, Nose Congestion, Mouth Pain, Mouth Swelling, Throat Pain, Throat Swelling, Other Respiratory: negative: Cough, Dry, Shortness of Breath, Hemoptysis, SOB with Excertion, Pleuritic Pain, Sputum, Wheezing Cardiovascular: negative: chest pain, palpitations, orthopnea, paroxysmal nocturnal dyspnea, edema, light headedness, other Gastrointestinal: negative: Nausea, Vomiting, Abdominal Pain, Diarrhea, Constipation, Melena, Hematochezia, Other Genitourinary: negative: Dysuria, Frequency, Incontinence, Hematuria, Retention , Other Musculoskeletal: negative: Neck Pain, Shoulder Pain, Arm Pain, Back Pain, Hand Pain, Leg Pain, Foot Pain, Other Neurological: negative: Weakness, Numbness, Incoordination, Change in Speech, Confusion, Seizures, Other - Medications/Allergies Allergies/Adverse Reactions: Allergies Allergy/AdvReac Type Severity Reaction Status Date / Time levofloxacin [From [facility]] Allergy Verified 11/24/17 16:30 Medications: Current Medications Acetaminophen (Tylenol) 650 mg PO Q4H PRN PRN Reason: Headache/Fever/Mild Pain (1-3) Acetaminophen (Tylenol) 1,000 mg PO Q6H PRN PRN Reason: Moderate to Severe Pain (6-10) Albuterol/Ipratropium (Duoneb) 3 ml NEB Q6H PRN PRN Reason: SOB &/or Wheezing Benzonatate (Tessalon) 100 mg PO TID [facility] Last Admin: 12/03/17 09:59 Dose: Not Given Clonidine (Catapres) 0.1 mg PO Q4H PRN PRN Reason: SBP>160 Dextrose/Water (Dextrose 50%) 25 gm SLOW IVP PRN PRN PRN Reason: Hypoglycemia Enoxaparin Sodium (Lovenox) 40 mg SC 0900 [facility] Last Admin: 12/03/17 09:01 Dose: 40 mg Famotidine (Pepcid) 20 mg PO BID [facility] Last Admin: 12/03/17 09:02 Dose: 20 mg Fenofibrate (Tricor) 145 mg PO HS [facility] Last Admin: 12/02/17 20:26 Dose: 145 mg Gabapentin (Neurontin) 300 mg PO TID [facility] Last Admin: 12/03/17 09:02 Dose: 300 mg Glipizide (Glucotrol) 10 mg PO BID [facility] Last Admin: 12/03/17 09:01 Dose: 10 mg Glucagon (Glucagon) 1 mg IM PRN PRN PRN Reason: Hypoglycemia Guaifenesin (Mucinex) 600 mg PO Q12HR [facility] Last Admin: 12/03/17 09:01 Dose: 600 mg Guaifenesin/Dextromethorphan (Robitussin Dm) 15 ml PO Q4H PRN PRN Reason: Cough Dextrose/Water (D5w) 1,000 mls @ 0 mls/hr IV .Q0M PRN PRN Reason: Hypoglycemia Insulin Glargine 15 units/ (Miscellaneous Medication) 0.15 mls @ 0 mls/hr SC BID [facility] Last Admin: 12/03/17 09:00 Dose: 0.15 mls Ceftriaxone Sodium 2 gm/ (Sodium Chloride) 100 mls @ 200 mls/hr IVPB Q24HR [facility] Last Admin: 12/02/17 15:59 Dose: 100 mls Insulin Human Lispro (Humalog) 0 units SC .BEDTIME SLIDING SC PRN PRN Reason: Bedtime Correctional Scale Last Admin: 12/01/17 16:58 Dose: 3 unit Insulin Human Lispro (Humalog) 0 units SC .MODERATE SLIDING SC PRN PRN Reason: Moderate Correctional Scale Last Admin: 11/30/17 17:18 Dose: 2 unit Lisinopril (Zestril) 5 mg PO BID [facility] Last Admin: 12/03/17 09:02 Dose: 5 mg Metronidazole (Flagyl) 500 mg PO TID [facility] Last Admin: 12/03/17 09:02 Dose: 500 mg Polyethylene Glycol (Miralax) 17 gm PO DAILY [facility] Last Admin: 12/03/17 09:02 Dose: Not Given Saccharomyces Boulardii (Florastor) 250 mg PO DAILY [facility] Last Admin: 12/03/17 09:01 Dose: 250 mg Senna/Docusate Sodium (Senokot S) 2 tab PO BID PRN PRN Reason: Constipation Sodium Chloride (Flush - Normal Saline) 10 ml IVF Q12HR [facility] Last Admin: 12/03/17 09:02 Dose: 10 ml Sodium Chloride (Flush - Normal Saline) 10 ml IVF PRN PRN PRN Reason: Saline Flush Testosterone Cypionate (Depo-Testosterone) 100 mg IM Fr@0900 [facility] Last Admin: 12/02/17 15:59 Dose: 100 mg Tramadol HCl (Ultram) 50 mg PO Q6H PRN PRN Reason: Mild-Moderate Pain (1-5) Last Admin: 11/29/17 07:09 Dose: 50 mg Tramadol HCl (Ultram) 100 mg PO Q6H PRN PRN Reason: Moderate to Severe Pain (6-10) Last Admin: 11/29/17 13:26 Dose: 100 mg
[2017-12-03] MEDS: cefTRIAXone\\ROCEPHIN 2 GM in Sodium Chloride 0.9% 100 ML IVPB SCH (14:22)
[2017-12-03] MEDS: Fenofibrate Nanocrystallized 145 MG TAB PO SCH (21:37)
[2017-12-03] MEDS: HumaLOG 300 UNITS/3 ML VIAL SC PRN (21:39)
[2017-12-04 05:14] LABS: #Basophils 0.1 thou/uL (0.0-0.2); #Eosinphils 0.2 thou/uL (0.0-0.7); #Lymphocytes 4.3 thou/uL (1.20-3.40); #Monocytes 1.3 thou/uL (0.11-0.59); #Neutrophils 8.3 thou/uL (1.40-6.50); %Basophils 0.6 % (0.0-1.0); %Eosinophils 1.7 % (0.0-10.0); %Monocytes 9.4 % (0.0-10.0); %Neutrophils 58.4 % (42.0-75.0); Hemoglobin 12.6 g/dL (14.0-18.0); Mean Corpuscular HGB CONC 31.5 g/dL (32.0-36.0); Mean Corpuscular Hemoglobin 27.1 pg (27.0-31.0); Mean Corpuscular Volume 86.1 fL (78.0-98.0); Mean Platelet Volume 8.8 fL (7.4-10.4); Platelet Count 363 thou/uL (130-400); RBC Distribution Width 13.1 % (11.5-14.5); Red Blood Cell (RBC) Count 4.65 mill/uL (4.70-6.10); White Blood Cell (WBC) Count 14.2 thou/uL (4.8-10.8)
[2017-12-04] MEDS: Famotidine 20 MG TAB PO SCH ×2 (08:40→09:14)
[2017-12-04] MEDS: Insulin Glargine 15 UNITS in Pre-Filled Syringe 1 EACH SC SCH ×2 (09:11→20:45)
[2017-12-04] MEDS: Gabapentin 300 MG CAP PO SCH ×3 (09:12→20:44)
[2017-12-04] MEDS: Benzonatate 100 MG CAP PO SCH ×3 (09:12→20:42)
[2017-12-04] MEDS: glipiZIDE 10 MG TAB PO SCH ×2 (09:12→20:42)
[2017-12-04] MEDS: Enoxaparin Sodium 40 MG/0.4 ML SYRINGE SC SCH (09:12)
[2017-12-04] MEDS: Lisinopril 5 MG TAB PO SCH ×2 (09:13→20:42)
[2017-12-04] MEDS: guaiFENesin ER 600 MG TAB PO SCH ×2 (09:13→20:42)
[2017-12-04] MEDS: metroNIDAZOLE 500 MG TAB PO SCH ×3 (09:13→20:42)
[2017-12-04] MEDS: Polyethylene Glycol 3350 17 GM Packet PO SCH (09:14)
[2017-12-04] MEDS: Saccharomyces boulardii 250 MG CAP PO SCH (09:14)
--- NOTE | 2017-12-04 11:52 | PDOC.PN ---
- Subjective Encounter Start Date: 12/04/17 Encounter Start Time: 11:51 Subjective: no new complaints.walked around in the hallways -: no F/C.no pain in affected leg - Objective Resuscitation Status: Resuscitation Status FULL:Full Resuscitation MAR Reviewed: Yes Vital Signs & Weight: Vital Signs (12 hours) Temp Pulse Resp BP BP Pulse Ox 12/04/17 11:00 97.9 F 94 18 120/77 94 L 12/04/17 09:13 93 131/85 12/04/17 08:00 94 L 12/04/17 07:44 98.1 F 93 18 131/85 94 L Weight Admit Weight 226 lb 1.6 oz Weight 226 lb 1.6 oz I&O: 12/03/17 12/04/17 12/05/17 06:59 06:59 06:59 Intake Total 300 360 Balance 300 360 Result Diagrams: 12/04/17 04:18 12/02/17 04:39 Additional Labs: Accuchecks 12/04/17 12/03/17 12/03/17 05:18 20:03 15:43 POC Glucose 107 262 H 264 H Phys Exam - Physical Examination Constitutional: NAD HEENT: PERRLA, moist MMs, sclera anicteric, oral pharynx no lesions Neck: no nodes, no JVD, supple, full ROM Respiratory: no wheezing, no rales, no rhonchi, clear to auscultation bilateral Cardiovascular: RRR, no significant murmur, no rub Gastrointestinal: soft, non-tender, no distention, positive bowel sounds Musculoskeletal: no edema, pulses present Neurological: non-focal, normal sensation, moves all 4 limbs Psychiatric: normal affect, A&O x 3 Skin: no rash Dx/Plan (1) Sepsis Code(s): A41.9 - SEPSIS, UNSPECIFIED ORGANISM Status: Acute Qualifiers: Sepsis type: Streptococcus group B Qualified Code(s): A40.1 - Sepsis due to streptococcus, group B (2) Diabetic foot ulcer Code(s): E11.621 - TYPE 2 DIABETES MELLITUS WITH FOOT ULCER; L97.509 - NON- PRESSURE CHRONIC ULCER OTH PRT UNSP FOOT W UNSP SEVERITY Status: Acute Qualifiers: Diabetic foot ulcer location: midfoot Diabetes mellitus type: type 2 Laterality: right Non-pressure ulcer stage: with bone involvement without evidence of necrosis Qualified Code(s): E11.621 - Type 2 diabetes mellitus with foot ulcer; L97.416 - 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 without evidence of necrosis Comment: s/p amp of 5th toe and metatarsal with debribement of dorsal ulcer.Extension into leg with abscess formation.S/P abscess drainage 11/29/17 (3) Bacteremia Code(s): R78.81 - BACTEREMIA Status: Acute Comment: streptococcus agalactiae / (4) Acute bronchitis Code(s): J20.9 - ACUTE BRONCHITIS, UNSPECIFIED Status: Acute Qualifiers: Bronchitis organism: unspecified organism Qualified Code(s): J20.9 - Acute bronchitis, unspecified Comment: resolving (5) DM type 2 (diabetes mellitus, type 2) Status: Chronic Qualifiers: Diabetes mellitus halfway insulin use: without halfway use Diabetes mellitus complication status: with hyperglycemia Qualified Code(s): E11.65 - Type 2 diabetes mellitus with hyperglycemia Comment: HbA1C of 11.2 (6) Dyslipidemia Code(s): E78.5 - HYPERLIPIDEMIA, UNSPECIFIED Status: Chronic (7) HTN (hypertension) Code(s): I10 - ESSENTIAL (PRIMARY) HYPERTENSION Status: Acute - Plan continue antibiotics, out of bed/ambulate, DVT proph w/SCDs Awaiting wound vac approval from Insurance company.Avoidable day #3 -: DC home on Po abx w OP GS and ID f/u -: wbs counts better .clinically stable * . Review of Systems - Review of Systems Constitutional: negative: fever, chills, sweats, weakness, malaise, other Eyes: negative: Pain, Vision Change, Conjunctivae Inflammation, Eyelid Inflammation, Redness, Other ENT: negative: Ear Pain, Ear Discharge, Nose Pain, Nose Discharge, Nose Congestion, Mouth Pain, Mouth Swelling, Throat Pain, Throat Swelling, Other Respiratory: negative: Cough, Dry, Shortness of Breath, Hemoptysis, SOB with Excertion, Pleuritic Pain, Sputum, Wheezing Cardiovascular: negative: chest pain, palpitations, orthopnea, paroxysmal nocturnal dyspnea, edema, light headedness, other Gastrointestinal: negative: Nausea, Vomiting, Abdominal Pain, Diarrhea, Constipation, Melena, Hematochezia, Other Genitourinary: negative: Dysuria, Frequency, Incontinence, Hematuria, Retention , Other Musculoskeletal: negative: Neck Pain, Shoulder Pain, Arm Pain, Back Pain, Hand Pain, Leg Pain, Foot Pain, Other Skin: negative: Rash, Lesions, Ariel, Bruising, Other Neurological: negative: Weakness, Numbness, Incoordination, Change in Speech, Confusion, Seizures, Other - Medications/Allergies Allergies/Adverse Reactions: Allergies Allergy/AdvReac Type Severity Reaction Status Date / Time levofloxacin [From Levaquin] Allergy Verified 11/24/17 16:30 Medications: Current Medications Acetaminophen (Tylenol) 650 mg PO Q4H PRN PRN Reason: Headache/Fever/Mild Pain (1-3) Acetaminophen (Tylenol) 1,000 mg PO Q6H PRN PRN Reason: Moderate to Severe Pain (6-10) Albuterol/Ipratropium (Duoneb) 3 ml NEB Q6H PRN PRN Reason: SOB &/or Wheezing Benzonatate (Tessalon) 100 mg PO TID [facility] Last Admin: 12/04/17 09:12 Dose: 100 mg Clonidine (Catapres) 0.1 mg PO Q4H PRN PRN Reason: SBP>160 Dextrose/Water (Dextrose 50%) 25 gm SLOW IVP PRN PRN PRN Reason: Hypoglycemia Enoxaparin Sodium (Lovenox) 40 mg SC 0900 [facility] Last Admin: 12/04/17 09:12 Dose: 40 mg Famotidine (Pepcid) 20 mg PO BID [facility] Last Admin: 12/04/17 09:14 Dose: 20 mg Fenofibrate (Tricor) 145 mg PO HS [facility] Last Admin: 12/03/17 21:37 Dose: 145 mg Gabapentin (Neurontin) 300 mg PO TID [facility] Last Admin: 12/04/17 09:12 Dose: 300 mg Glipizide (Glucotrol) 10 mg PO BID [facility] Last Admin: 12/04/17 09:12 Dose: 10 mg Glucagon (Glucagon) 1 mg IM PRN PRN PRN Reason: Hypoglycemia Guaifenesin (Mucinex) 600 mg PO Q12HR [facility] Last Admin: 12/04/17 09:13 Dose: 600 mg Guaifenesin/Dextromethorphan (Robitussin Dm) 15 ml PO Q4H PRN PRN Reason: Cough Dextrose/Water (D5w) 1,000 mls @ 0 mls/hr IV .Q0M PRN PRN Reason: Hypoglycemia Insulin Glargine 15 units/ (Miscellaneous Medication) 0.15 mls @ 0 mls/hr SC BID [facility] Last Admin: 12/04/17 09:11 Dose: 0.15 mls Ceftriaxone Sodium 2 gm/ (Sodium Chloride) 100 mls @ 200 mls/hr IVPB Q24HR [facility] Last Admin: 12/03/17 14:22 Dose: 100 mls Insulin Human Lispro (Humalog) 0 units SC .BEDTIME SLIDING SC PRN PRN Reason: Bedtime Correctional Scale Last Admin: 12/03/17 21:39 Dose: 3 unit Insulin Human Lispro (Humalog) 0 units SC .MODERATE SLIDING SC PRN PRN Reason: Moderate Correctional Scale Last Admin: 11/30/17 17:18 Dose: 2 unit Lisinopril (Zestril) 5 mg PO BID [facility] Last Admin: 12/04/17 09:13 Dose: 5 mg Metronidazole (Flagyl) 500 mg PO TID [facility] Last Admin: 12/04/17 09:13 Dose: 500 mg Polyethylene Glycol (Miralax) 17 gm PO DAILY [facility] Last Admin: 12/04/17 09:14 Dose: Not Given Saccharomyces Boulardii (Florastor) 250 mg PO DAILY [facility] Last Admin: 12/04/17 09:14 Dose: 250 mg Senna/Docusate Sodium (Senokot S) 2 tab PO BID PRN PRN Reason: Constipation Sodium Chloride (Flush - Normal Saline) 10 ml IVF Q12HR [facility] Last Admin: 12/04/17 09:14 Dose: 10 ml Sodium Chloride (Flush - Normal Saline) 10 ml IVF PRN PRN PRN Reason: Saline Flush Testosterone Cypionate (Depo-Testosterone) 100 mg IM Fr@0900 [facility] Last Admin: 12/02/17 15:59 Dose: 100 mg Tramadol HCl (Ultram) 50 mg PO Q6H PRN PRN Reason: Mild-Moderate Pain (1-5) Last Admin: 11/29/17 07:09 Dose: 50 mg Tramadol HCl (Ultram) 100 mg PO Q6H PRN PRN Reason: Moderate to Severe Pain (6-10) Last Admin: 11/29/17 13:26 Dose: 100 mg
[2017-12-04] MEDS: cefTRIAXone\\ROCEPHIN 2 GM in Sodium Chloride 0.9% 100 ML IVPB SCH (15:06)
[2017-12-04] MEDS: traMADol HCl 50 MG TAB PO PRN (15:07)
[2017-12-04] MEDS: HumaLOG 300 UNITS/3 ML VIAL SC PRN ×2 (17:44→20:45)
[2017-12-04] MEDS: Fenofibrate Nanocrystallized 145 MG TAB PO SCH (20:42)
[2017-12-05 05:06] LABS: #Basophils 0.1 thou/uL (0.0-0.2); #Eosinphils 0.3 thou/uL (0.0-0.7); #Lymphocytes 4.1 thou/uL (1.20-3.40); #Monocytes 1.5 thou/uL (0.11-0.59); %Basophils 0.9 % (0.0-1.0); %Eosinophils 2.2 % (0.0-10.0); %Lymphocytes 31.3 % (21.0-51.0); %Monocytes 11.4 % (0.0-10.0); %Neutrophils 54.2 % (42.0-75.0); Mean Corpuscular HGB CONC 31.1 g/dL (32.0-36.0); Mean Corpuscular Volume 86.8 fL (78.0-98.0); Mean Platelet Volume 8.7 fL (7.4-10.4); Platelet Count 331 thou/uL (130-400); RBC Distribution Width 13.2 % (11.5-14.5); Red Blood Cell (RBC) Count 4.42 mill/uL (4.70-6.10); White Blood Cell (WBC) Count 12.9 thou/uL (4.8-10.8)
[2017-12-05] MEDS: HumaLOG 300 UNITS/3 ML VIAL SC PRN (05:34)
[2017-12-05 07:33] VITALS: BP 127/88; TEMP 98.2
[2017-12-05] MEDS: Benzonatate 100 MG CAP PO SCH ×2 (08:40→13:29)
[2017-12-05] MEDS: Saccharomyces boulardii 250 MG CAP PO SCH (08:40)
[2017-12-05] MEDS: glipiZIDE 10 MG TAB PO SCH (08:40)
[2017-12-05] MEDS: guaiFENesin ER 600 MG TAB PO SCH (08:40)
[2017-12-05] MEDS: Enoxaparin Sodium 40 MG/0.4 ML SYRINGE SC SCH (08:41)
[2017-12-05] MEDS: metroNIDAZOLE 500 MG TAB PO SCH ×2 (08:41→13:30)
[2017-12-05] MEDS: Famotidine 20 MG TAB PO SCH (08:41)
[2017-12-05] MEDS: Lisinopril 5 MG TAB PO SCH (08:41)
[2017-12-05] MEDS: Insulin Glargine 15 UNITS in Pre-Filled Syringe 1 EACH SC SCH (08:42)
[2017-12-05] MEDS: Polyethylene Glycol 3350 17 GM Packet PO SCH (08:43)
[2017-12-05] MEDS: Gabapentin 300 MG CAP PO SCH (10:50)
[2017-12-05] MEDS: cefTRIAXone\\ROCEPHIN 2 GM in Sodium Chloride 0.9% 100 ML IVPB SCH (13:35)
[2017-12-05] MEDS ORDERED: Gabapentin 300 MG CAP PO SCH (15:00)
--- NOTE | 2017-12-06 00:09 | DIS ---
DATE OF ADMISSION: 11/24/2017 DATE OF DISCHARGE: 12/05/2017 CONDITION AT THE TIME OF DISCHARGE: Stable and improved. DISCHARGE DISPOSITION: Home. PRIMARY CARE PHYSICIAN: Gustavo Singer. DISCHARGE DIAGNOSES: 1. Right lower extremity wound with infection, status post I&D with wound VAC. 2. Sepsis secondary to #1. 3. Diabetes mellitus. 4. Streptococcus agalactia bacteremia, 2/2 blood cultures. 5. Acute bronchitis, resolved. 6. Diabetes mellitus type 2. 7. Dyslipidemia. 8. Hypertension. DISCHARGE MEDICATIONS: Keflex 500 mg p.o. b.i.d. for 3 weeks, Flagyl 500 mg every 6 hours for 3 week s, Novolin N sliding scale, Novolin 70/30 15 units b.i.d. subcutaneously, Florastor 250 mg daily. Resume home medications, fenofibric acid 160 daily, Neurontin 300 t.i.d., lisinopril 2.5 mg daily, gl ipizide 5 mg daily, testosterone shot every 7 days 100 mg IM. INHOUSE CONSULTATIONS: 1. Infectious Disease, Dr. Baeza. 2. General Surgery, Dr. Carey. PROCEDURES DONE IN THE HOSPITAL: 1. Foot x-ray on 11/24/2017 upon presentation, which is cellulitis of the foot around the lateral as pect of the fifth metatarsophalangeal joint without evidence of osteomyelitis. 2. Amputation of the right fifth toe and metatarsal and wound left open to heal by secondary intenti on on 11/24/[address] Carey. 3. Lower extremity ultrasound which showed good arterial flow throughout the right lower extremity w hich is an arterial duplex. 4. Incision and drainage of the small abscess of the right foot at bedside by Dr. Carey on 11/28/19 18. 5. Venous Doppler right lower extremity which is negative for DVT. 6. Incision and drainage of right leg abscess mid to proximal medial right leg below the knee and 2 incision and drainage of abscess over proximal foot 11/29/[address] Carey. HISTORY OF PRESENTING ILLNESS: Mr. Jovel is a 47-year-old male with history of diabetes mellitus, dy slipidemia, hypertension, and neuropathy, who presented to the ER with complaints of a new onset of i nflammatory process in the right lateral forefoot starting a few days prior to admission. X-ray done in the emergency room did not show any osteolytic lesions, but there was extension of the wound from the lateral forefoot over the fifth MPJ. He reported that it started as a scrape over the dorsum of the foot and the swelling and the redness got worse. He presented to the emergency room at [facility] ER and was admitted for sepsis with right foot abscess and cellulitis. He was found to have leukocytosis with WBC of 23 and 29% bands. His blood sugar at the time of admission was 450. Please see admission history and physical for further detail. General Surgery and ID were consulted and empiric IV antibiotics were started. HOSPITAL COURSE: The patient was seen by Dr. Carey and underwent a total of 3 surgeries, various I&D s to control the infection. When I saw the patient, he already has had 2 surgeries, but the third carrero rgery was required as the infection spread up his leg. After the third incision and drainage and wou nd VAC, his symptoms started to get significantly better. His white cell count stabilized and he was afebrile. Dr. Baeza from Infectious Disease also saw the patient and antibiotics were adjusted as per his recom mendations. His recommendation was to discharge the patient on Keflex and Flagyl for 3-4 weeks which is done. His discharge was delayed as the wound VAC could not be arranged in time. He will follow up with [facility] patient [facility] for therapy as well and he will be sent out with wound VAC which was approv ed earlier this morning. He was seen and examined prior to discharge. He is ambulatory and has good appetite, has no fevers a nd no complaints. Care was discussed with at bedside. PHYSICAL EXAMINATION: VITAL SIGNS: This morning reveals temperature 98.2, pulse of 88, respirations 18, saturating 98% on room air, blood pressure 127/88. GENERAL APPEARANCE: No acute distress. CHEST: Clear to auscultation bilaterally. HEART: Rate and rhythm regular. MUSCULOSKELETAL: Right on the right foot is in dressing. LABORATORY DATA: Discharge WBC 12.9, which was 23.3 upon presentation with 54% neutrophils and 2% ba nds, which was 29% on presentation. Blood sugar 104. His blood cultures showed 2/2 group B Streptoc occus agalactiae. Urine culture with beta hemolytic streptococcus and toe abscess culture with Strep tococcus agalactiae group B and aerobic cocci and anaerobic gram negative arlene. Streptococcus was sen sitive to cephalosporins, levofloxacin, penicillin, and vancomycin. Discharge plan was discussed with the patient and in detail. He reported that his blood sugars have been rather uncontrolled and he has never received a formal diabetic education. He was set up f or outpatient diabetic classes. I have started him on Novolin 70/30 as well as Novolin R with slidin g scale. His medication dosages would need to be adjusted based on his blood sugar in the outpatient setting. He is encouraged to keep a blood sugar log and bring it to his primary care physician's ap pointment next time. Good Rx coupons were also provided to him. Medication prescriptions were sent to his pharmacy. Total time spent in the discharge of this patient 35 minutes.
== END 2017-12-05 17:20 | disposition home or self-care (01) | DRG 854 ==
LOC: SCSER 11:09 → 2NO 16:06 → T4-A 11-25 14:25
PROVIDERS: ADMIT Internal Medicine; ATTEND Internal Medicine
PROC: 0Y6M0ZF Detachment at Right Foot, Partial 5th Ray, Open Approach (ICD-10-PCS; principal; 2017-11-24)
PROC: 0H9MXZZ Drainage of Right Foot Skin, External Approach (ICD-10-PCS; 2017-11-27)
PROC: 0H9KXZZ Drainage of Right Lower Leg Skin, External Approach (ICD-10-PCS; 2017-11-29)
DX: A40.1 Sepsis due to streptococcus, group B (principal); L02.611 Cutaneous abscess of right foot; L02.415 Cutaneous abscess of right lower limb; N17.9 Acute kidney failure, unspecified; J44.0 Chronic obstructive pulmonary disease with (acute) lower respiratory infection; E11.65 Type 2 diabetes mellitus with hyperglycemia; E11.621 Type 2 diabetes mellitus with foot ulcer; L97.519 Non-pressure chronic ulcer of other part of right foot with unspecified severity; E78.5 Hyperlipidemia, unspecified; J20.9 Acute bronchitis, unspecified; E11.40 Type 2 diabetes mellitus with diabetic neuropathy, unspecified; F17.290 Nicotine dependence, other tobacco product, uncomplicated
CPT/HCPCS: 36415; 36416; 71045; 80048; 80053; 81003; 81015; 83036; 83605; 83735; 85025; 86803; 87040; 87070; 87077; 87086; 87149; 87186; 87205; 87389; 88305; 88311; 93005; 93923; 94640; 96365; 96367; 99406; G8978-GP-CH; G8979-GP-CH; G8980-GP-CH; J0696; J1071; J1100; J1650; J2001; J2405; J2543; J2550; J2704; J2920; J3010; J3370; J7050; J7506; J7620

== ENCOUNTER 2017-12-07 09:03 | Outpatient (CLI) | payer SELFPAY ==
--- NOTE | 2017-12-07 10:54 | HP ---
DATE OF SERVICE: 12/07/2017 HISTORY OF PRESENT ILLNESS: Mr. Ferdinand Jovel is a very pleasant 47-year-old gentleman who presents t o the [facility] for evaluation of 3 wounds of the right lower extremity. The patient underwent am putation of the right fifth toe and metatarsal on 11/24/2017. At this time, the wound was left open for healing by secondary intention. In addition, at the time of surgery on 11/24/2017, patient under went incision and drainage of a dorsal foot abscess. Shortly thereafter on 11/29/2017, the patient u nderwent incision and drainage of a right leg abscess. Negative pressure therapy was initiated subse quent to surgery on 11/24/2017 and on 11/29/2017 and upon discharge from [facility], the patient was referred to the Wound Center for assistance with dressing changes of the wound VAC. The patient was discharged to home on Keflex and Flagyl each for 3 weeks. PAST MEDICAL HISTORY: 1. Diabetes mellitus. 2. History of hypertension. PAST SURGICAL HISTORY: 1. Traumatic amputation of finger. 2. Testicular prosthesis after surgery for undescended testicle as a child. 3. Amputation of right fifth toe and metatarsal/incision and drainage of dorsal foot abscess, 2017. 4. Incision and drainage of right leg abscess, 11/29/2017. MEDICATIONS: 1. Keflex. 2. Flagyl. 3. Florastor. 4. Novolin N. 5. Novolin 70/30. 6. Lisinopril. 7. Neurontin. 8. Fenofibrate. 9. Glipizide. 10. Depo testosterone. 11. Multivitamin. ALLERGIES: LEVAQUIN. SOCIAL HISTORY: The patient states he stopped smoking 20 years ago. He states that he smoked approx imately one half pack of cigarettes per day for 10 years. The patient admits to the heavy consumptio n of alcohol in the past. He states that presently, he consumes 1-2 drinks per month and has been do ing so for the past 7-8 years. FAMILY HISTORY: Negative for diabetes mellitus or coronary artery disease. PHYSICAL EXAMINATION: VITAL SIGNS: Temperature 97.8, pulse 97, respirations 19, blood pressure 163/91. Accu-Chek 158. GENERAL: A 47-year-old gentleman sitting on chair in examination room in no acute distress. HEENT: Normocephalic, atraumatic. NECK: No nuchal rigidity. CHEST: Clear to auscultation. CARDIOVASCULAR: Regular rate and rhythm. ABDOMEN: Soft. EXTREMITIES: Three wounds of the right lower extremity are present. The wound of the right foot sub sequent to amputation of the right fifth toe and metatarsal measures approximately 3.5 x 5.1 cm. The wound of the right calf subsequent to incision and drainage of right leg abscess measures approximat tanner 7.5 x 1.1 cm. All 3 right lower extremity wounds are granulating. Nonviable tissue present with in the margins of the right foot wound was debrided with an excisional full-thickness debridement wit h the use of a curette. No purulent drainage is associated with any of the wounds. No erythema of t he skin surrounding any of the wounds is present. No maceration of the skin of the periwound of any of the wounds is noted. A posterior tibial pulse is easily palpable on the right. No significant ed dylan of the right foot or lower leg is present on exam today. NEUROLOGIC: Grossly nonfocal. ASSESSMENT AND PLAN: 1. Right lower extremity wounds as described above. Negative pressure therapy will be continued wit h dressing changes of the wound VAC here in the [facility]ound Center. The patient has been reminded to jenny nue Flagyl and Keflex as prescribed at the time of discharge, the patient states he has an appointmen t with Dr. Carey in 1-2 weeks. I will see Mr. Jovel again in two weeks. 2. Diabetes mellitus. The patient's Accu-Chek in clinic today is 158. The patient has been reminde d that for optimal wound healing, his blood glucoses should remain below 150. 3. History of hypertension.
== END 2017-12-07 09:04 | disposition home or self-care (01) ==
LOC: WCC 09:03
PROVIDERS: ATTEND Family Medicine
DX: T81.89XD Other complications of procedures, not elsewhere classified, subsequent encounter (principal); E11.9 Type 2 diabetes mellitus without complications; I10 Essential (primary) hypertension; Z89.421 Acquired absence of other right toe(s); Z79.4 Long term (current) use of insulin; Z87.891 Personal history of nicotine dependence
CPT/HCPCS: 11042; 99203; G0463

== ENCOUNTER 2017-12-11 11:07 | Outpatient (CLI) | payer OTHER, SELFPAY ==
[2017-12-11] MEDS ORDERED: Sodium Chloride 0.9% 15 ML NEB ONE (15:48)
== END 2017-12-11 11:08 | disposition home or self-care (01) ==
LOC: WCC 11:07
PROVIDERS: ATTEND Family Medicine
DX: T81.89XD Other complications of procedures, not elsewhere classified, subsequent encounter (principal)
CPT/HCPCS: 97605; A4218

== ENCOUNTER 2017-12-14 10:41 | Outpatient (CLI) | payer OTHER, SELFPAY ==
[2017-12-14] MEDS ORDERED: Sodium Chloride 0.9% 15 ML NEB ONE (15:55)
== END 2017-12-14 10:42 | disposition home or self-care (01) ==
LOC: WCC 10:41
PROVIDERS: ATTEND Family Medicine
CPT/HCPCS: 97605; A4218

== ENCOUNTER 2017-12-18 10:39 | Outpatient (CLI) | payer OTHER, SELFPAY | END 2017-12-18 10:40 | disposition home or self-care (01) | LOC: WCC 10:39 | PROVIDERS: ATTEND Family Medicine | DX: T81.89XD Other complications of procedures, not elsewhere classified, subsequent encounter (principal) | CPT/HCPCS: 97605 ==

== ENCOUNTER 2018-01-04 09:49 | Outpatient (CLI) | payer SELFPAY ==
--- NOTE | 2018-01-04 11:35 | PRG ---
DATE OF SERVICE: 01/04/2018 HISTORY: Mr. Ferdinand Jovel is a very pleasant 47-year-old gentleman who presents to the [facility] Center for evaluation of 3 wounds of the right lower extremity. The patient underwent amputation of the rig ht fifth toe and metatarsal on 11/24/2017. At this time, the wound was left open for healing by seco ndary intention. In addition, at the time of surgery on 11/24/2017, the patient underwent incision a nd drainage of a dorsal foot abscess. Shortly thereafter, on 11/29/2017, the patient underwent incis ion and drainage of a right leg abscess. Negative pressure therapy was initiated subsequent to surge ry on 11/24/2017 and on 11/29/2017 and upon discharge from [facility], the pat ient was referred to the Wound Center for assistance with dressing changes of the wound VAC. The pat ient was discharged to home on Keflex and Flagyl each for 3 weeks. Since the patient's visit on 11/20, negative pressure therapy has been discontinued by Dr. Carey. Also, as per Dr. Carey, the patient has been performing wet-to-dry dressing changes for his right lower extremity wounds. PHYSICAL EXAMINATION: VITAL SIGNS: Temperature 99.9, pulse 114, respirations 18, blood pressure 115/82. Accu-Chek 120. EXTREMITIES: Only 2 wounds of the right lower extremity remain. The wound of the right foot subsequ ent to amputation of the right fifth toe and metatarsal measures approximately 3.4 x 4.5 cm. The wou nd of the right calf subsequent to incision and drainage of a right leg abscess measures approximatel y 6.4 x 0.4 cm. Both wounds are granulating. Nonviable tissue present within the margins of the rig ht foot wound was debrided with an excisional full-thickness debridement. No purulent drainage is as sociated with either granulating wound. No erythema of the skin surrounding either wound is present. No maceration of the skin of the periwound of either wound is noted. A posterior tibial pulse is e asily palpable on the right. No significant edema of the right foot or lower leg is present on exam today. ASSESSMENT AND PLAN: 1. Right lower extremity wounds as described above. Wet-to-dry dressing changes as per Dr. Carey w ill be continued. The patient has a followup appointment with Dr. Carey in 2 weeks. I will see Mr. Jovel again in 3 weeks. 2. Diabetes mellitus. The patient's Accu-Chek in clinic today is 120. The patient has been reminde d that for optimal wound healing, his blood glucoses should remain below 150. 3. History of hypertension.
[2018-01-04] MEDS ORDERED: Sodium Chloride 0.9% 15 ML NEB ONE (18:00)
== END 2018-01-04 09:50 | disposition home or self-care (01) ==
LOC: WCC 09:49
PROVIDERS: ATTEND Family Medicine
DX: T81.89XD Other complications of procedures, not elsewhere classified, subsequent encounter (principal); E11.9 Type 2 diabetes mellitus without complications; I10 Essential (primary) hypertension; Z89.421 Acquired absence of other right toe(s)
CPT/HCPCS: 11042; A4218